=== PATIENT | female | born 1995 | race Caucasian/White ===

== ENCOUNTER 2020-12-23 17:02 | Outpatient (CLI) | payer BC, SELFPAY ==
--- NOTE | ~2020-12-23 | US_ITS ---
US OB limited DATE: 12/23/2020 17:43 INDICATION: False labor. Major cervical length. TECHNIQUE: Real-time imaging and Doppler analysis COMPARISON: None FINDINGS: The cervix measures 4 cm. No funneling is evident. Breech presentation, longitudinal lie. Subjectively normal amount of amniotic fluid. heart rate of 141 bpm. IMPRESSION: 4 cm cervical length, without funneling Breech presentation Reviewed, dictated and finalized at Location [facility]. Reviewed, dictated and finalized at location A.
--- NOTE | ~2020-12-23 | US_ITS ---
US OB transvaginal DATE: 12/23/2020 17:43 INDICATION: False labor TECHNIQUE: Real-time imaging and Doppler analysis COMPARISON: None FINDINGS: Breech presentation, longitudinal lie. heart rate of 141 bpm. Subjectively normal amount of amniotic fluid. Cervical length is 4 cm; no funneling. IMPRESSION: 4 cm cervical length; no funneling Breech presentation Reviewed, dictated and finalized at [facility]. Reviewed, dictated and finalized at location A.
== END 2020-12-23 17:03 | disposition home or self-care (01) ==
LOC: ANHIMG 17:08
PROVIDERS: Visit Provider Obstetrics & Gynecology
DX: O32.1XX0 Maternal care for breech presentation, not applicable or unspecified (principal); Z3A.00 Weeks of gestation of pregnancy not specified
CPT/HCPCS: 76815; 76817

== ENCOUNTER 2021-05-09 16:55 | Inpatient (IN) | payer BC, SELFPAY ==
[2021-05-09] VITALS (12 sets, daily range): BP systolic 120–142; BP diastolic 81–98; PULSE 94–133; RESP 20; TEMP 37; BMI 45.3
--- OUTSIDE RECORDS SUMMARY | 2021-05-09 17:00 | XMS_ITS | Encounter Summary ---
:1995 Author Reason for Visit OB visit 39w5d Assessment and Plan 1. Routine care Discussion Note: None recorded.Patient educational handouts: No information available. Plan of Care Reminders Provider Appointments None ? ? recorded. Lab None ? ? recorded. Referral None ? ? recorded. Procedures None ? ? recorded. Surgeries None ? ? recorded. Imaging None ? ? recorded. Medications Name Start Date ? ? One A Day Women's DHA ? OneTouch Delica Plus Lancet 33 gauge ? OneTouch Verio Reflect Meter ? OneTouch Verio test strips ? Medications Administered None recorded. Vitals Height Weight BMI Blood Pressure 4 ft 11.75 in 226 lbs 44.5 kg/m2 135/86 mm[Hg] Results Lab Results None recorded. Allergies Code Code System Name Reaction Severity Onset Adhesive Rash Mild to Moderate ? Problems Name Status Onset Date Source ? Active 10/26/2020 ? Procedures Date Name Performed by ?
--- OUTSIDE RECORDS SUMMARY | 2021-05-09 17:00 | XMS_ITS | Encounter Summary ---
:1995 Author Reason for Visit OB visit OB [id number] EDC 05/06/2021 LMP 07/30/2020 Assessment and Plan 1. Routine care Discussion [...] BMI Blood Pressure 4 ft 11.75 in 224 lbs 44.1 kg/m2 129/87 mm[Hg] Results Lab Results None recorded. Allergies Code Code System Name Reaction Severity Onset Adhesive Rash Mild to Moderate ? Problems Name Status Onset Date Source ? Active 10/26/2020 ? Procedures Date Name Performed by ?
--- OUTSIDE RECORDS SUMMARY | 2021-05-09 17:00 | XMS_ITS | Encounter Summary ---
:1995 Author Reason for Visit None recorded. Assessment and Plan 1. Maternal obesity complicating , childbirth and the puerperium, antepartum ? US, obstetric, biophysical profile + non-stress test Discussion Note: None recorded.Patient educational handouts: No information available. Plan of Care Reminders Provider Appointments None recorded. ? ? Lab None recorded. ? ? Referral None recorded. ? ? Procedures None recorded. ? ? Surgeries None recorded. ? ? Imaging US, Obstetric, [facility] Biophysical Profile + 05/04/2021 Non-stress Test Medications Name Start Date ? ? One A Day Women's DHA ? OneTouch Delica Plus Lancet 33 gauge ? OneTouch Verio Reflect Meter ? OneTouch Verio test strips ? Medications Administered None recorded. Vitals None recorded. Results Lab Results None recorded. Allergies Code Code System Name Reaction Severity Onset Adhesive Rash Mild to Moderate ? Problems Name Status Onset Date Source ? Active 10/26/2020 ? Procedures
--- OUTSIDE RECORDS SUMMARY | 2021-05-09 17:00 | XMS_ITS | Encounter Summary ---
:1995 Author Reason for Visit NST [id number] EDC 05/06/2021 Assessment and Plan 1. Maternal obesity complicating , childbirth and the puerperium, antepartum ? non-stress test Discussion Note: None recorded.Patient educational handouts: No information available. Plan of Care Reminders Provider Appointments None ? ? recorded. Lab None ? ? recorded. Referral None ? ? recorded. Procedures None ? ? recorded. Surgeries None ? ? recorded. Imaging 05/04/2021 [place] Non-stress Test Medications Name Start Date ? [...]
--- OUTSIDE RECORDS SUMMARY | 2021-05-09 17:00 | XMS_ITS | Encounter Summary ---
:1995 Author Reason for Visit None recorded. Assessment and Plan 1. Maternal obesity complicating , childbirth and the puerperium, antepartum ? US, obstetric, follow-up ? US, obstetric, biophysical profile + non-stress test Discussion Note: None recorded.Patient educational handouts: No information available. Plan of Care Reminders Provider Appointments None recorded. ? ? Lab None recorded. ? ? Referral None recorded. ? ? Procedures None recorded. ? ? Surgeries None recorded. ? ? Imaging US, Obstetric, [facility] Follow-up 04/27/2021 ? [facility], [facility] + 04/27/2021 Non-stress Test Medications Name Start Date ? [...]
--- OUTSIDE RECORDS SUMMARY | 2021-05-09 17:00 | XMS_ITS | Encounter Summary ---
:1995 Author Reason for Visit OB visit 37w5d Assessment and Plan 1. Routine care Discussion [...] BMI Blood Pressure 4 ft 11.75 in 229 lbs 45.1 kg/m2 133/86 mm[Hg] Results Lab Results None recorded. Allergies Code Code System Name Reaction Severity Onset Adhesive Rash Mild to Moderate ? Problems Name Status Onset Date Source ? Active 10/26/2020 ? Procedures Date Name Performed by ?
--- OUTSIDE RECORDS SUMMARY | 2021-05-09 17:00 | XMS_ITS | Encounter Summary ---
[...] recorded. Surgeries None ? ? recorded. Imaging 04/27/2021 [place] Non-stress Test Medications Name Start Date ? [...]
--- OUTSIDE RECORDS SUMMARY | 2021-05-09 17:00 | XMS_ITS ---
:1995 Author Care Team Providers Name Role Phone Nataly Chaney Primary Care Provider Unavailable Allergies Code Code System Name Reaction Severity Status Onset Adhesive Rash Mild to Active ? Moderate Medications Name Status Start Date Stop Date ? ? One A Day Completed ? 10/26/2020 One A Day Women's DHA Active ? N ot available OneTouch Delica Plus Lancet 33 gauge Active ? Not available OneTouch Verio Reflect Meter Active ? Not available OneTouch Verio test strips Active ? Not a vailable Problems Name Status Onset Date Source ? Active 10/26/2020 ? Procedures Date Name Performed by ? 10/26/2020 US, Obstetric, Nuchal Translucency [facility] [place] [address] [place] [address] (Work [address]) 12/21/2020 US, Obstetric, 2Nd or 3Rd Trimester [place] lo [address] [place] [address] (Work Place) 12/23/2020 US, Obstetric, Transabdominal [facility] Transvaginal [address] [place] [address] (Work [address]) 01/21/2021 US, Obstetric, Follow-up [place] [address]
--- OUTSIDE RECORDS SUMMARY | 2021-05-09 17:01 | XMS_ITS | Encounter Summary ---
:1995 Author Reason for Visit OB visit Assessment and Plan Assessment Note Patient is ___weeks . Discu ssed plan. 1. Routine care Discussion Note: None recorded.Patient [...] Height Weight BMI Blood Pressure 4 ft 9.25 in 223 lbs 47.8 kg/m2 119/80 mm[Hg] Results Lab Results None recorded. Allergies Code Code System Name Reaction Severity Onset Adhesive Rash Mild to Moderate ? Problems Name Status Onset Date Source ? Active 10/26/2020 ? Procedures Date Name
--- OUTSIDE RECORDS SUMMARY | 2021-05-09 17:01 | XMS_ITS | Encounter Summary ---
:1995 Author Reason for Visit None recorded. Assessment and Plan 1. condition affecting obs tetrical care of mother ? US, obstetric, biophysical profile + non-stress test Discussion Note: None recorded.Patient educational handouts: No information available. Plan of Care Reminders Provider Appointments None recorded. ? ? Lab None recorded. ? ? Referral None recorded. ? ? Procedures None recorded. ? ? Surgeries None recorded. ? ? Imaging US, Obstetric, [facility] Biophysical Profile + 04/20/2021 Non-stress Test Medications Name Start Date ? [...]
--- OUTSIDE RECORDS SUMMARY | 2021-05-09 17:01 | XMS_ITS | Encounter Summary ---
[...] BMI Blood Pressure 4 ft 11.75 in 232 lbs 45.7 kg/m2 126/81 mm[Hg] Results Lab Results None recorded. Allergies Code Code System Name Reaction Severity Onset Adhesive Rash Mild to Moderate ? Problems Name Status Onset Date Source ? Active 10/26/2020 ? Procedures Date Name
--- OUTSIDE RECORDS SUMMARY | 2021-05-09 17:01 | XMS_ITS | Encounter Summary ---
:1995 Author Reason for Visit NST [id number] EDC 05/06/2021 Assessment and Plan 1. Gestational diabetes mellitus , class A>1< ? non-stress test Discussion Note: None recorded.Patient educational handouts: No information available. Plan of Care Reminders Provider Appointments None ? ? recorded. Lab None ? ? recorded. Referral None ? ? recorded. Procedures None ? ? recorded. Surgeries None ? ? recorded. Imaging 04/13/2021 [place] Non-stress Test Medications Name Start Date ? ? One A Day Women's DHA ? OneTouch Delica Plus Lancet 33 gauge ? OneTouch Verio Reflect Meter ? OneTouch Verio test strips ? Medications Administered None recorded. Vitals Height Weight BMI Blood Pressure 4 ft 11.75 in 229 lbs 45.1 kg/m2 139/81 mm[Hg] Results Lab Results None recorded. Allergies Code Code System Name Reaction Severity Onset Adhesive Rash Mild to Moderate ? Problems Name Status Onset Date Source ? Active 10/26/2020 ? Procedures Date
--- OUTSIDE RECORDS SUMMARY | 2021-05-09 17:01 | XMS_ITS | Encounter Summary ---
[...] None recorded. ? ? Imaging US, Obstetric, [place] [facility] Follow-up 03/30/2021 ? [facility] + 03/30/2021 Non-stress Test Medications Name Start Date ? [...]
--- OUTSIDE RECORDS SUMMARY | 2021-05-09 17:01 | XMS_ITS | Encounter Summary ---
[...] ft 11.75 in 229 lbs 45.1 kg/m2 (1) 139/81 mm[H g] (2) 129/93 mm[Hg ] Results Lab Results None recorded. Allergies Code Code System Name Reaction Severity Onset Adhesive Rash Mild to Moderate ? Problems Name Status Onset Date Source ? Active
--- OUTSIDE RECORDS SUMMARY | 2021-05-09 17:01 | XMS_ITS | Encounter Summary ---
[...] recorded. Surgeries None ? ? recorded. Imaging 04/20/2021 [place] Non-stress Test Medications Name Start Date ? [...]
--- OUTSIDE RECORDS SUMMARY | 2021-05-09 17:01 | XMS_ITS | Encounter Summary ---
[...] recorded. Surgeries None ? ? recorded. Imaging 04/06/2021 [place] Non-stress Test Medications Name Start Date ? [...]
--- OUTSIDE RECORDS SUMMARY | 2021-05-09 17:01 | XMS_ITS | Encounter Summary ---
:1995 Author Reason for Visit None recorded. Assessment and Plan 1. screening ? US, obstetric, follow-up Discussion Note: None recorded.Patient educational handouts: No information available. Plan of Care Reminders Provider Appointments None ? ? recorded. Lab None ? ? recorded. Referral None ? ? recorded. Procedures None ? ? recorded. Surgeries None ? ? recorded. Imaging US, 02/15/2021 [place] Obstetric, Follow-up Medications Name Start Date ? ? One [...] ? Procedures Date Name Performed by ? 01/21/2021 US, Obstetric, Follow-up Juan
--- OUTSIDE RECORDS SUMMARY | 2021-05-09 17:01 | XMS_ITS | Encounter Summary ---
:1995 Author Reason for Visit OB visit 34w5d Assessment and Plan 1. Routine care Discussion [...] BMI Blood Pressure 4 ft 11.75 in 227 lbs 44.7 kg/m2 137/87 mm[Hg] Results Lab Results None recorded. Allergies Code Code System Name Reaction Severity Onset Adhesive Rash Mild to Moderate ? Problems Name Status Onset Date Source ? Active 10/26/2020 ? Procedures Date Name Performed by ?
--- OUTSIDE RECORDS SUMMARY | 2021-05-09 17:01 | XMS_ITS | Encounter Summary ---
:1995 Author Reason for Visit OB visit 35w5d / GBS TODAY Assessment and Plan 1. Routine care Discussion [...] BMI Blood Pressure 4 ft 11.75 in 228 lbs 44.9 kg/m2 137/84 mm[Hg] Results Lab Results None recorded. Allergies Code Code System Name Reaction Severity Onset Adhesive Rash Mild to Moderate ? Problems Name Status Onset Date Source ? Active 10/26/2020 ? Procedures Date Name Performed by ?
--- OUTSIDE RECORDS SUMMARY | 2021-05-09 17:01 | XMS_ITS | Encounter Summary ---
[...] BMI Blood Pressure 4 ft 9.25 in 226 lbs 48.5 kg/m2 119/83 mm[Hg] Results Lab Results None recorded. Allergies Code Code System Name Reaction Severity Onset Adhesive Rash Mild to Moderate ? Problems Name Status Onset Date Source ? Active 10/26/2020 ? Procedures Date Name
--- OUTSIDE RECORDS SUMMARY | 2021-05-09 17:01 | XMS_ITS | Encounter Summary ---
[...] None recorded. ? ? Imaging US, Obstetric, [facility] Biophysical Profile + 04/13/2021 Non-stress Test Medications Name Start Date ? [...]
[2021-05-09 17:36] LABS: Basophils Absolute Auto 0.1 K/mm3 (0.0-0.1); Basophils Percent Auto 0.4 % (0.2-1.2); Eosinophils Absolute Auto 0.1 K/mm3 (0-0.3); Eosinophils Percent Auto 0.7 % (0-4.4); Hematocrit 38.3 % (37.0-47.0); Hemoglobin 12.9 g/dL (12.0-15.0); Immature Granulocyte Absolute 0.06 K/mm3 (0.00-0.031); Immature Granulocyte Percent A 0.5 % (0-0.5); Immature Platelet Fraction Pct 15.5 % (0.9-11.2); Lymphocytes Absolute Auto 2.61 K/mm3 (0.9-3.2); Lymphocytes Percent Auto 21.7 % (18.3-44.2); Mean Corpuscular HGB Conc 33.7 g/dl (32-36); Mean Corpuscular Hemoglobin 27.8 pg (26-34); Mean Corpuscular Volume 82.5 fl (80-100); Mean Platelet Volume 12.6 fl (7.4-10.4); Monocytes Absolute Auto 0.8 K/mm3 (0.1-0.6); Neutrophils Absolute Auto 8.4 K/mm3 (1.3-6.7); Neutrophils Percent Auto 69.7 % (45.5-73.1); Platelet Count Result 229 k/mm3 (150-375); Red Blood Count 4.64 M/mm3 (4.2-5.4); Red Cell Distribution Width 15.6 % (11.5-14.5); White Blood Count 12.1 K/mm3 (4.5-10.0)
[2021-05-09] MEDS: DINOPROSTONE 10 MG VAG INSERT VAGINAL (17:50)
[2021-05-09 19:18] LABS: Alanine Aminotransferase 21 U/L (4-35); Albumin Level 3.4 g/dL (3.5-5.1); Alkaline Phosphatase 239 U/L (38-126); Anion Gap 7 mmol/L (8-16); Aspartate Amino Transferase 23 U/L (14-36); Bilirubin,Total 0.2 mg/dL (0.2-1.3); Blood Urea Nitrogen 7 mg/dL (7-17); Carbon Dioxide 20 mmol/L (22-30); Chloride 105 mmol/L (98-107); Estimated Glomerular Filt Rate > 60; Glucose 104 mg/dL (65-110); Potassium 3.6 mmol/L (3.4-5.0); Sodium 132 mmol/L (137-145); Uric Acid 4.8 mg/dL (2.5-7.5)
[2021-05-10] VITALS (135 sets, daily range): BP systolic 79–142; BP diastolic 30–119; PULSE 73–174; RESP 18; TEMP 36.6–37.3; O2SAT 97–100
--- NOTE | 2021-05-10 04:13 | WPDANESEPP ---
Anes - Eval Pre Procedure Procedure: Labor epidural Date/Time: 05/10/21 04:13 Surgeon: Papo Preop Diagnosis: Abd pain with contractions Pre Op Diagnosis: IOL Patient Data Age: 26 Gender: F Height: 1.5 m Weight: 102 kg Last Vital Signs Temp 98.2 F 05/10/21 00:53 Pulse 174 H 05/10/21 04:05 Resp 18 05/10/21 00:53 BP 140/119 H 05/10/21 04:05 Allergies Allergy/AdvReac Type Severity Reaction Status Date / Time No Known Allergies Allergy Unknown Unverified 01/05/19 14:20 No Known Allergies Allergy Uncoded 01/05/19 14:20 Home Medications Medication Instructions Recorded Confirmed Type PNV cmb#95-ferrous fumarate-FA 1 tablet PO DAILY 04/05/21 05/09/21 History [] Laboratory Tests 05/09/21 05/09/21 05/09/21 17:26 17:26 17:26 WBC 12.1 K/mm3 H K/mm3 (4.5-10.0) RBC 4.64 M/mm3 M/mm3 (4.2-5.4) Hgb 12.9 g/dL g/dL (12.0-15.0) Hct 38.3 % % (37.0-47.0) MCV 82.5 fl fl (80-100) MCH 27.8 pg pg (26-34) MCHC 33.7 g/dl g/dl (32-36) RDW 15.6 % H % (11.5-14.5) Plt Count 229 k/mm3 k/mm3 (150-375) MPV 12.6 fl H fl (7.4-10.4) Immature Gran % (Auto) 0.5 % % (0-0.5) Neut % (Auto) 69.7 % % (45.5-73.1) Lymph % (Auto) 21.7 % % (18.3-44.2) Chase % (Auto) 7.0 % % (2.6-8.5) Eos % (Auto) 0.7 % % (0-4.4) Baso % (Auto) 0.4 % % (0.2-1.2) Lymph # (Auto) 2.61 K/mm3 K/mm3 (0.9-3.2) Chase # (Auto) 0.8 K/mm3 H K/mm3 (0.1-0.6) Eos # (Auto) 0.1 K/mm3 K/mm3 (0-0.3) Baso # (Auto) 0.1 K/mm3 K/mm3 (0.0-0.1) Abs Immat Gran (auto) 0.06 K/mm3 H K/mm3 (0.00-0.031) Absolute Neuts (auto) 8.4 K/mm3 H K/mm3 (1.3-6.7) Absolute Nucleated RBC 0.0 K/mm3 K/mm3 (0.0-0.012) Nucleated RBC % 0.0 % % (0.0-0.2) % Immature Plt Fraction 15.5 % H % (0.9-11.2) Sodium Potassium Chloride Carbon Dioxide Anion Gap BUN Creatinine Estim Creat Clear Calc Estimated GFR Glucose Uric Acid Calcium Total Bilirubin AST ALT Alkaline Phosphatase Total Protein Albumin RPR Pending Blood Type O Positive Antibody Screen Negative 05/09/21 18:59 WBC RBC Hgb Hct MCV MCH MCHC RDW Plt Count MPV Immature Gran % (Auto) Neut % (Auto) Lymph % (Auto) Chase % (Auto) Eos % (Auto) Baso % (Auto) Lymph # (Auto) Chase # (Auto) Eos # (Auto) Baso # (Auto) Abs Immat Gran (auto) Absolute Neuts (auto) Absolute Nucleated RBC Nucleated RBC % % Immature Plt Fraction Sodium 132 mmol/L L mmol/L (137-145) Potassium 3.6 mmol/L mmol/L (3.4-5.0) Chloride 105 mmol/L mmol/L (98-107) Carbon Dioxide 20 mmol/L L mmol/L (22-30) Anion Gap 7 mmol/L L mmol/L (8-16) BUN 7 mg/dL mg/dL (7-17) Creatinine 0.60 mg/dL L mg/dL (0.7-1.0) Estim Creat Clear Calc Not Reportable Estimated GFR > 60 (59 - ) Glucose 104 mg/dL mg/dL (65-110) Uric Acid 4.8 mg/dL mg/dL (2.5-7.5) Calcium 9.0 mg/dL mg/dL (8.4-10.2) Total Bilirubin 0.2 mg/dL mg/dL (0.2-1.3) AST 23 U/L U/L (14-36) ALT 21 U/L U/L (4-35) Alkaline Phosphatase 239 U/L H U/L (38-126) Total Protein 6.0 g/dL L g/dL (6.3-8.2) Albumin 3.4 g/dL L g/dL (3.5-5.1) RPR Blood Type Antibody Screen Patient hx anesthesia problems: none Family hx anesthesia problems: none Results Review: All pre-operative results and documents have been
[2021-05-10] MEDS: fentaNYL CITRATE INJ (*CRX) 100 MCG/2 ML VIAL 50 MCG IV PUSH (04:22)
[2021-05-10 06:08] LABS: Rapid Plasma Reagin Non-Reactive (NonReactive)
[2021-05-10] MEDS: ACETAMINOPHEN 500 MG TABLET 1000 MG PO (06:09)
[2021-05-10] MEDS: LACTATED RINGERS 1,000 ML 125 ML IV CONT ×4 (06:25→13:05)
[2021-05-10] MEDS: fentaNYL CITRATE INJ (*CRX) 100 MCG/2 ML VIAL IV PUSH ×2 (07:14→11:07)
--- NOTE | 2021-05-10 08:37 | WPDOBADMIT ---
Obstetrics - Admit Note Admission Note: 26 y/o G1 here for induction of labor. Pt would like to wait on arom until later today. record reviewed. No pertinent additions to the history and/or any subsequent changes in the physical findings that are not consistent with the expected course of the were found. Additions to the history and/or subsequent changes in the physical findings follow. None.
[2021-05-10] MEDS: OXYTOCIN 30 UNITS/NS 500 ML 30 UNITS/500 ML BAG 6 UNITS IV CONT (08:39)
--- NOTE | 2021-05-10 15:36 | PM.IMHP ---
H&P: HPI History of Present Illness Date/Time: 05/10/21 15:36 Chief Complaint: Induction of labor Review of Systems Review of Systems: All systems reviewed & are unremarkable except as noted in HPI and below Constitutional: Constitutional: Reports as per HPI and Reports no additional constitutional complaints Eyes: Eyes: Reports as per HPI ENT: Reports system reviewed and no additional complaints, except as documented Cardiovascular: Cardiovascular: Reports as per HPI Respiratory: Respiratory: Reports as per HPI Gastrointestinal: Gastrointestinal: Reports as per HPI Genitourinary: Genitourinary: Reports no additional female genitourinary complaints Musculoskeletal: Musculoskeletal: Reports no additional musculoskeletal complaints Integumentary/Breasts: Skin/Breast: Reports system reviewed and no additional complaints, except as docu Neurologic: Reports system reviewed and no additional complaints, except as documented Psychiatric: Psychiatric: Reports no additional psychiatric complaints Endocrine: Endocrine: Reports no additional endocrine complaints Hematologic/Lymphatic: Hematologic/Lymphatic: Reports no additional hematologic/lymphatic complaints Allergic/Immunologic: Allergic/Immunologic: Reports no additional allergic/immunologic complaints [facility] Past Medical History Medical History ADHD Asthma Depression Morbid obesity Family History Family History Mother Hypertension Social History Social History Smoking status: Never smoker Substance use: never Spiritual care concerns: No Meds Home Medications and Allergies Home Medications Medication Instructions Recorded Confirmed Type PNV cmb#95-ferrous fumarate-FA 1 tablet PO DAILY 04/05/21 05/09/21 History [] Allergies Allergy/AdvReac Type Severity Reaction Status Date / Time No Known Allergies Allergy Unknown Unverified 01/05/19 14:20 No Known Allergies Allergy Uncoded 01/05/19 14:20 Vital Signs Vital Signs - 24 hr 05/09/21 17:36 05/09/21 17:37 05/09/21 17:51 Temperature 98.6 F Pulse Rate 112 H 133 H Respiratory Rate 20 Blood Pressure 128/94 H 142/89 H Pulse Oximetry 05/09/21 18:01 05/09/21 18:16 05/09/21 18:31 Temperature Pulse Rate 109 H 119 H 105 H Respiratory Rate Blood Pressure 128/92 H 128/98 H 120/93 H Pulse Oximetry 05/09/21 18:46 05/09/21 19:01 05/09/21 19:16 Temperature Pulse Rate 98 104 H 98 Respiratory Rate Blood Pressure 127/86 133/82 129/91 H Pulse Oximetry 05/09/21 19:31 05/09/21 19:46 05/09/21 23:56 Temperature Pulse Rate 94 95 108 H Respiratory Rate Blood Pressure 133/83 131/81 132/86 Pulse Oximetry 05/10/21 00:01 05/10/21 00:16 05/10/21 00:31 Temperature Pulse Rate 97 101 H 92 Respiratory Rate Blood Pressure 132/84 125/84 128/82 Pulse Oximetry 05/10/21 00:46 05/10/21 00:53 05/10/21 01:02 Temperature 98.2 F Pulse Rate 87 87 Respiratory Rate 18 Blood Pressure 117/70 Pulse Oximetry 05/10/21 02:05 05/10/21 03:08 05/10/21 04:05 Temperature Pulse Rate 86 97 174 H Respiratory Rate Blood Pressure 116/80 134/83 140/119 H Pulse Oximetry 05/10/21 04:33 05/10/21 04:38 05/10/21 04:43 Temperature Pulse Rate 95 Respiratory Rate Blood Pressure 138/90 Pulse Oximetry 98 98 97 05/10/21 04:47 05/10/21 04:48 05/10/21 04:53 Temperature Pulse Rate 99 Respiratory Rate Blood Pressure 131/67 Pulse Oximetry 98 97 05/10/21 04:58 05/10/21 05:01 05/10/21 05:03 Temperature Pulse Rate 90 Respiratory Rate Blood Pressure 118/77 Pulse Oximetry 98 98 05/10/21 05:08 05/10/21 05:13 05/10/21 05:17 Temperature Pulse Rate 94 Respiratory Rate Blood Pressure 130/68 Pulse
--- NOTE | 2021-05-10 15:41 | WPDHPUPDATE1 ---
History and Physical Update Update Date/Time: 05/10/21 15:41 FHR deceleration x 5 minutes. No improvement with multiple position changes. Cervix 4cm. Dr Barros called over for possible section. History and Physical has been reviewed, including an updated exam of the patient. There are NO changes in the patient's condition. Risks, benefits, and alternatives have been discussed and questions answered. Patient agrees to proceed with procedure.
--- NOTE | 2021-05-10 15:42 | WPDHPUPDATE1 ---
History and Physical Update Update Date/Time: 05/10/21 15:42 Urgent called for NRFHT. History and Physical has been reviewed, including an updated exam of the patient. There are NO changes in the patient's condition. Risks, benefits, and alternatives have been discussed and questions answered. Patient agrees to proceed with procedure.
--- NOTE | 2021-05-10 16:35 | P.OP_ITS ---
Procedure Note - Detailed Date of Procedure 05/10/21 Pre-op Diagnosis IOL, nonreassuring heart tones Post-op Diagnosis same Procedure Performed Low-transverse section Surgeon Maeve Barros MD Anesthesia spinal Findings Normal gestational maternal anatomy, average size infant, normal Apgars. Description of Procedure The patient was taken the operating room. She was prepped and draped in dorsal supine position with a leftward tilt. This was done after spinal anesthetic was applied. A low-transverse skin incision was made and carried down till of the fascia with the knife. The fascial incision was made with the knife. The fascial incision was extended laterally with Nair scissors. The fascia was tented upward superiorly and inferiorly the rectus muscles were dissected off bluntly. The rectus muscles were the midline. The preperitoneal fat and peritoneum were dissected open bluntly at the superior aspect of the rectus muscles. The peritoneal incision was extended superior and inferior with good position of bladder. The uterine incision was made with a scalpel down to the level of the amniotic cavity. The amniotic cavity was entered bluntly. The was delivered. The cord was clamped and cut and th e was handed off to waiting pediatric staff. Cord bloods were obtained. The placenta was removed manually. The uterus was exteriorized. The uterus was cleared of all clots, debris and membranes. The uterus was closed in 0 Vicryl running lock fashion. The uterine incision extended to the left lateral side towards the uterine artery and ureter. Multiple muuwko-li-hepuk sutures were placed in this area to control the bleeding. This was between the bladder and the left adnexa. When the bleeding was stopped with multiple sutures the position of the ureter was checked. The space lateral to the fallopian tube and adjacent to the round ligament was opened and the ureter was examined visually and palpated. An imbricating over a was placed along the incision line as well. The uterus was returned to the abdomen. The gutters were cleared of all clots and debris. The fascia was closed with 0 Vicryl running fashion. The subcutaneous tissue was irrigated pinpoint bleeders were cauterized. The skin was closed with subcuticular absorbable tarah. The skin incision line was covered with glue. The patient tolerated the procedure well. She has taken recovery room in stable condition. Sponge lap and needle counts were correct x2. Estimated Blood Loss 560 Pathology yes Complications No immediate complications Condition stable Disposition PACU
[2021-05-10] MEDS: OXYTOCIN 30 UNITS/NS 500 ML 30 UNITS/500 ML BAG 125 UNITS IV CONT (17:30)
[2021-05-10] MEDS: KETOROLAC 30 MG/ML VIAL (*BKC) IV PUSH (18:26)
--- NOTE | 2021-05-10 19:27 | PC.NURSE ---
Patient transferred to post room #286 via stretcher. Support person, Nikolai, present. Oriented to unit, room, information board, rooming in, admission packet and security measures. Patient verbalizes understanding.
[2021-05-10] MEDS: DOCUSATE SODIUM 100 MG CAPSULE PO (21:01)
[2021-05-10] MEDS: HYDROcodone/acetaminophen (*CRX) 10-325 MG TABLET 1 TAB PO (21:01)
[2021-05-10] MEDS: DEXTROSE 5%/0.45% SOD CHL 1,000 ML 125 ML IV CONT (23:58)
[2021-05-11 01:30] VITALS: BP 120/78; PULSE 96; RESP 16; TEMP 36.8; O2SAT 96
[2021-05-11] MEDS: HYDROcodone/acetaminophen (*CRX) 10-325 MG TABLET 1 TAB PO ×5 (01:58→18:53)
[2021-05-11 04:05] VITALS: BP 105/58; PULSE 94; RESP 18; TEMP 37.1; O2SAT 99
[2021-05-11 05:36] LABS: Basophils Absolute Auto 0.1 K/mm3 (0.0-0.1); Basophils Percent Auto 0.4 % (0.2-1.2); Eosinophils Percent Auto 0.3 % (0-4.4); Hematocrit 30.2 % (37.0-47.0); Hemoglobin 9.8 g/dL (12.0-15.0); Immature Granulocyte Absolute 0.06 K/mm3 (0.00-0.031); Immature Granulocyte Percent A 0.4 % (0-0.5); Immature Platelet Fraction Pct 16.2 % (0.9-11.2); Lymphocytes Absolute Auto 2.25 K/mm3 (0.9-3.2); Lymphocytes Percent Auto 14.3 % (18.3-44.2); Mean Corpuscular HGB Conc 32.5 g/dl (32-36); Mean Corpuscular Hemoglobin 27.1 pg (26-34); Mean Corpuscular Volume 83.7 fl (80-100); Mean Platelet Volume 13.7 fl (7.4-10.4); Monocytes Percent Auto 6.6 % (2.6-8.5); Neutrophils Absolute Auto 12.3 K/mm3 (1.3-6.7); Platelet Count Result 165 k/mm3 (150-375); Red Blood Count 3.61 M/mm3 (4.2-5.4); Red Cell Distribution Width 15.9 % (11.5-14.5); White Blood Count 15.7 K/mm3 (4.5-10.0)
[2021-05-11] MEDS: IBUPROFEN 600 MG TABLET PO ×2 (07:24→16:08)
[2021-05-11] MEDS: DOCUSATE SODIUM 100 MG CAPSULE PO ×2 (07:25→16:09)
[2021-05-11] MEDS: POLYSACCHARIDE IRON COMPLEX 150 MG CAPSULE PO ×2 (07:25→16:08)
[2021-05-11] MEDS: MULTIVIT/MIN/PREN/FOL AC/IRON TABLET 1 TAB PO (07:26)
--- NOTE | 2021-05-11 07:48 | PM.OBPNVD ---
OB - PN: Subj Subjective Date/time seen: 05/11/21 07:48 Patient comments: no complaints baby status: doing well OB - PN: Obj Data Labs CBC & Chem 7: 05/11/21 04:20 05/09/21 18:59 Labs: Laboratory Results - last 24 hr 05/11/21 04:20 WBC 15.7 H RBC 3.61 L Hgb 9.8 L D Hct 30.2 L MCV 83.7 MCH 27.1 MCHC 32.5 RDW 15.9 H Plt Count 165 MPV 13.7 H Immature Gran % (Auto) 0.4 Neut % (Auto) 78.0 H Lymph % (Auto) 14.3 L [place] % (Auto) 6.6 Eos % (Auto) 0.3 Baso % (Auto) 0.4 Lymph # (Auto) 2.25 [place] # (Auto) 1.0 H Eos # (Auto) 0.0 Baso # (Auto) 0.1 Abs Immat Gran (auto) 0.06 H Absolute Neuts (auto) 12.3 H Absolute Nucleated RBC 0.0 Nucleated RBC % 0.0 % Immature Plt Fraction 16.2 H OB - PN A/P Plan day: 1 Plan: routine care Time Spent With Patient Time: Total time spent is greater than 50% in coordination of care (as documented) at patient's floor/unit and/or counseling patient: Time with patient: less than 15 minutes Review of Systems Review of Systems: All systems reviewed & are unremarkable except as noted in HPI and below Exam Narrative: Fundus firm and vaginal flow controlled. No lower ext redness, warmth, or edema. Negative homans. Denies h/a, v/d or e/p. Reflexes normal. Const: General: comfortable Chest: Breast/axilla inspection: normal inspection of the breasts Resp: Effort & Inspection: normal respiratory effort Cardio: Rate: regular rate GI: GI Palp: Yes Soft to palpation Psych: Appearance: grossly normal Affect: normal affect Attitude: cooperative Thought content: Yes Normal thought content present Judgement: Good judgement present (Psych)
--- NOTE | 2021-05-11 07:58 | PM.OBPNVD ---
OB - PN: Subj Subjective Date/time seen: 05/11/21 07:58 Patient comments: no complaints, pain well controlled, tolerating diet and flatus present OB - PN: Obj Data Labs CBC & Chem 7: 05/11/21 04:20 05/09/21 18:59 Labs: Laboratory Results - last 24 hr 05/11/21 04:20 WBC 15.7 H RBC 3.61 L Hgb 9.8 L D Hct 30.2 L MCV 83.7 MCH 27.1 MCHC 32.5 RDW 15.9 H Plt Count 165 MPV 13.7 H Immature Gran % (Auto) 0.4 Neut % (Auto) 78.0 H Lymph % (Auto) 14.3 L [place] % (Auto) 6.6 Eos % (Auto) 0.3 Baso % (Auto) 0.4 Lymph # (Auto) 2.25 [place] # (Auto) 1.0 H Eos # (Auto) 0.0 Baso # (Auto) 0.1 Abs Immat Gran (auto) 0.06 H Absolute Neuts (auto) 12.3 H Absolute Nucleated RBC 0.0 Nucleated RBC % 0.0 % Immature Plt Fraction 16.2 H OB - PN A/P Plan day: 1 Comments: Post Op LTCS - no problems, routine recovery Time Spent With Patient Time: Total time spent is greater than 50% in coordination of care (as documented) at patient's floor/unit and/or counseling patient: Exam Const: General: cooperative, healthy appearing, comfortable and no acute distress Resp: Auscultation: no crackles, no rales, no rhonchi and no wheezes Cardio: Rhythm: regular rhythm Heart sounds: no click and no murmurs GI: Inspection: non-distended Auscultation: normal bowel sounds Extrem: General: normal to inspection, no pedal edema and no calf tenderness
[2021-05-11 08:30] VITALS: BP 130/92; PULSE 103; RESP 16; TEMP 37.4; O2SAT 98
[2021-05-11 11:40] VITALS: BP 125/83; PULSE 103; RESP 18; TEMP 36.3; O2SAT 97
--- NOTE | 2021-05-11 12:57 | WPDANLDPN2 ---
Anes-Prog Note L&D Date/Time: 05/11/21 12:57 Comfortable throughout: section Neuraxial method: epidural Epidural/Spinal procedure site: clean & non-tender Neuro status: Neuro function grossly intact. Cardiovascular status: normal Respiratory status: normal Airway patency: baseline Mental status: baseline Post-Op hydration status: normal Vital Signs: Last Vital Signs Temp 36.3 C L 05/11/21 11:40 Pulse 103 H 05/11/21 11:40 Resp 18 05/11/21 11:40 BP 125/83 05/11/21 11:40 Pulse Ox 97 05/11/21 11:40 Pain score (VAS): 04/19 I/O: Intake & Output 05/10/21 05/11/21 05/11/21 23:59 07:59 15:59 Intake Total 600 Output Total 810 450 Balance -810 150 Post-procedural complaints: none Patient feedback: Patient satisfied with anesthetic care.
--- NOTE | 2021-05-11 12:57 | WPDANLDNPN2 ---
Anes-Prog Note L&D-Neuraxial Date/Time: 05/11/21 12:57 Neuraxial medications: intrathecal PF morphine Opiod-related complaints: none Patient feedback: Patient satisfied with post-operative pain management.
--- NOTE | 2021-05-11 14:40 | PC.NURSE ---
[id number] Introductions were made and mother led the discussion of her desires and plans to breastfeed her baby. Reviewed handwashing to prevent infection before and after taking care of her baby. Mother to the restroom, pericare and handwashing completed. Mother verbalizes she is unable to independently latch . Mother has grade 2 flat nipples, edema and states she is very tired recovering from a C/S. Discussed how to watch for early feeding cues, place skin to skin, then feeding baby when infant is ready or every 2-3 hours. Reviewed positioning/alignment with the use of the visual handouts in mom and baby guide and with breast tool. Encouraged mother with infant skin to skin. Assisted mom with to the right breast in football position using nipple to nose encouraging asymmetrical 140-degree latch. Reviewed there is to be no pain with , how to detach infant from the breast, visuals to watch for to confirm effective . Reviewed effective latching with resources tool/handout. Infant was unable to latch. Mom demonstrated teach-back of hand expression. Mother wants to rest, eat and is tearful. Dad is actively involved. Mother has verbalized understanding watching for feeding cues for responsive feeding or how to stimulate infant to initiate from the start of the last feeding. Mother voiced understanding to feed infant when she sees feeding cues, 8-12 times in 24 hours approximately every 2-3 hours from the start of the last feeding or she has discomfort with nursing. Reported to primary RN. [phone] Mom called RN to the room and reviewed hand expression, colostrum to mouth, nipple shield risk and benefits of the tool and when to initiate pumping for milk production. 1312 - Primary RN reported mom fed baby Enfamil.
[2021-05-11 19:45] VITALS: BP 124/85; PULSE 106; RESP 18; TEMP 36.3; O2SAT 98
[2021-05-12] MEDS: IBUPROFEN 600 MG TABLET PO ×4 (00:27→23:23)
[2021-05-12] MEDS: HYDROcodone/acetaminophen (*CRX) 10-325 MG TABLET 1 TAB PO (00:27)
--- NOTE | 2021-05-12 08:00 | PM.OBPNVD ---
OB - PN: Subj Subjective Date/time seen: 05/12/21 08:00 Patient comments: no complaints baby status: doing well OB - PN: Obj Data Labs CBC & Chem 7: 05/11/21 04:20 05/09/21 18:59 OB - PN A/P Plan day: 2 Plan: routine care and discharge home Time Spent With Patient Time: Total time spent is greater than 50% in coordination of care (as documented) at patient's floor/unit and/or counseling patient: Review of Systems Review of Systems: All systems reviewed & are unremarkable except as noted in HPI and below Exam Narrative: Incision CDI Const: General: cooperative, healthy appearing and awake
--- NOTE | 2021-05-12 08:04 | PM.OBDSVD ---
DS: Admitting Diagnosis Discharge Date 05/12/21 Admitting Diagnosis section OB - DS: Summary OB Procedures : None OB Procedures Intrapartum: Spontaneous Vag Delivery OB Procedures: : None Peripartum Data Procedures: Procedures Operation Date: 05/10/21 16:00 Actual Procedure Side Surgeon p Section Maeve Barros MD Time Spent with Patient Time attestation: Total time spent providing and/or coordinating discharge services: DS: Data Data Completed and Pending Pending studies at discharge: Pending at discharge 05/10/21 17:03 Surgical [PTH] Routine Discharge Plan Discharge Attending physician on discharge: Maeve Barros Discharging Clinician: Tanja Murdock Patient Disposition: Home, Self-Care Activity: pelvic rest Diet: regular Patient Instructions: Antibiotic Form Stand Alone Forms: General Discharge Information Follow-up/Referrals: Maeve Barros MD [Physician] - 1 Week Discharge Medications: New hydrocodone-acetaminophen 5-325 mg Tablet 1 tablet PO Q3H PRN (Reason: Moderate Pain (4-6)) Qty: 30 RF: 0 Continued PNV cmb#95-ferrous fumarate-FA [] 28 mg iron- 800 mcg Tablet 1 tablet PO DAILY RF: 0 Date of admission: 05/09/21 16:55 Primary Care Provider: PHYSICIAN,ENERGY AND CONSERVATION TECHNICIAN Admitting Provider: Maeve Barros Attending physician on admission: Maeve Barros Condition: Stable
[2021-05-12 08:25] VITALS: BP 132/73; PULSE 96; RESP 16; TEMP 36.5; O2SAT 100
[2021-05-12] MEDS: MULTIVIT/MIN/PREN/FOL AC/IRON TABLET 1 TAB PO (08:37)
[2021-05-12] MEDS: DOCUSATE SODIUM 100 MG CAPSULE PO ×2 (08:37→15:47)
[2021-05-12] MEDS: POLYSACCHARIDE IRON COMPLEX 150 MG CAPSULE PO ×2 (08:37→15:47)
[2021-05-12] MEDS: HYDROcodone/acetaminophen (*CRX) 5-325 MG TABLET 1 TAB PO ×3 (08:38→23:25)
[2021-05-12] MEDS: SIMETHICONE 80 MG TAB.CHEW PO ×2 (08:44→15:47)
--- NOTE | 2021-05-12 10:16 | PCCCNOTE ---
Care Coordination. Patient referred to CC for history of cutting. Spoke with pt. and FOB at bedside. Pt. reports history of cutting from a long time ago. She reports used to be on antidepressants, but has a plan to check in with her PMD in a few weeks to see how she's doing. If she's still feeling well, will likely not get started on antidepressants. Spoke with pt. about post and keeping communication open with FOB, family, and doctor, so she would be able to get help if needed. Pt. reports good family support. She plans to go home with FOB. They have all necessary baby care items. She is over-resourced for WIC services and denies any other community or counseling resource information needed. No further CC needs.
[2021-05-12 19:40] VITALS: BP 132/89; PULSE 107; RESP 16; TEMP 36.8; O2SAT 100
[2021-05-13] MEDS: POLYSACCHARIDE IRON COMPLEX 150 MG CAPSULE PO (07:12)
[2021-05-13] MEDS: MULTIVIT/MIN/PREN/FOL AC/IRON TABLET 1 TAB PO (07:12)
[2021-05-13] MEDS: HYDROcodone/acetaminophen (*CRX) 5-325 MG TABLET 1 TAB PO ×3 (07:12→14:09)
[2021-05-13] MEDS: DOCUSATE SODIUM 100 MG CAPSULE PO (07:12)
[2021-05-13] MEDS: IBUPROFEN 600 MG TABLET PO ×2 (07:13→14:10)
[2021-05-13 08:30] VITALS: BP 136/86; PULSE 84; RESP 18; TEMP 36.2; O2SAT 100
--- NOTE | 2021-05-13 08:48 | PM.OBPNVD ---
OB - PN: Subj Subjective Date/time seen: 05/13/21 08:48 Patient comments: no complaints, pain well controlled, tolerating diet and flatus present [place] baby status: doing well OB - PN: Obj Data Labs CBC & Chem 7: 05/11/21 04:20 05/09/21 18:59 OB - PN A/P Plan day: 3 Plan: routine care and discharge home (Follow up in 1 week) Time Spent With Patient Time: Total time spent is greater than 50% in coordination of care (as documented) at patient's floor/unit and/or counseling patient: Time with patient: less than 15 minutes Review of Systems Review of Systems: All systems reviewed & are unremarkable except as noted in HPI and below Exam Narrative: Fundus firm. Vaginal flow controlled. Incision dry and intact. Negative homans. No redness, warmth, or pain of lower ext. Const: General: comfortable Chest: Breast/axilla inspection: normal inspection of the breasts Resp: Effort & Inspection: normal respiratory effort Auscultation: clear to auscultation bilaterally Cardio: Rate: regular rate GI: GI Palp: Yes Soft to palpation Psych: Appearance: grossly normal Affect: normal affect Attitude: cooperative Thought content: Yes Normal thought content present Judgement: Good judgement present (Psych)
[2021-05-13] MEDS: TETANUS,DIPHTHERIA,AC PERTUSSIS ADULT (0.5 ML) BOOSTRIX IM (10:03)
--- NOTE | 2021-05-13 14:38 | PC.NURSE ---
1000 - Explored the plan in place for mom feeding at home. She has chosen to pump/feed/supplement. She is smiling and confident this morning with her plan. Reviewed pumping frequencies for milk production and storage using the mom and baby guide for additional resource. Reinforced watching for feeding cues with responsive feeding, how to stimulate feeding initiated three hours from the start of the last feeding. Mother voiced understanding of information shared. Reported to the primary RN.
[2021-05-15 10:57] VITALS: BP 131/78; PULSE 86; RESP 20; TEMP 37.1; O2SAT 100
--- NOTE | 2021-05-16 15:52 | PM.OBDSVD ---
DS: Admitting Diagnosis Discharge Date 05/13/21 Admitting Diagnosis IOL OB - DS: Summary OB Procedures : None OB Procedures Intrapartum: OB Procedures: : None Peripartum Data Procedures: Procedures Operation Date: 05/10/21 16:00 Actual Procedure Side Surgeon p Section Maeve Barros MD Time Spent with Patient Time attestation: Total time spent providing and/or coordinating discharge services: DS: Data Data Completed and Pending Completed studies during hospitalization: Pending at discharge 05/10/21 17:03 Surgical [PTH] Routine Discharge Plan Discharge Attending physician on discharge: Maeve Barros Consulting providers: Nataly Chaney ; Tanja Murdock Discharging Clinician: Nataly Chaney Patient Disposition: Home, Self-Care Activity: may drive after 2 weeks and pelvic rest Diet: regular Discharge Instructions: Education: Mom and Baby Guide Given to: Mother Follow-Up: Call your delivering provider's office for an appointment to be seen in: 1 Week Mom and baby should come to the [facility] for the follow-up appointment. Appointment Date/Time: May 15, 2021 at 11:00 am What to expect at your follow-up visit: Physical Assessment Call [phone] if you are unable to keep your appointment time. BREAST CARE: * Wear a snug supportive bra. * For engorgement discomfort: Breast Feeding: * Apply warm moist washcloths * Express milk as needed to relieve engorgement * Wear loose clothing * For sore nipples: * Identify correct latch-on * Apply warm moist washcloths before and after nursing * Air dry nipples after nursing * May apply Lansinoh cream to nipples ABDOMINAL INCISION: * Allow incision to air dry * Do NOT use lotions for powders on your incision * When showering, allow soap and water to run over the incision, but do not wash incision PERINEAL CARE: * Until bleeding stops, use your aleyda bottle after urinating * Change your pad frequently throughout the day * No tub baths until seen by your physician - You may shower ACTIVITY: * Rest as much as possible. * Do not exercise or lift anything heavier than your baby (such as laundry or other children.) * Avoid stairs or driving as much as possible. * Do not put anything into the vagina. No douching, tampons, or sexual activity until seen by physician. NOTIFY PHYSICIAN IF YOU HAVE ANY QUESTIONS OR IF ANY OF THE FOLLOWING SYMPTOMS OCCUR: * If your incision becomes red, swollen, or more painful than what you have experienced in the hospital. * If your vaginal bleeding becomes foul smelling. * If your vaginal bleeding becomes more heavy than a period or if your bleeding changes from pink to bright red. However, you may pass an occasional walnut-sized clot once or twice for the first week . * If you experience a sharp, shooting pain in you calves. * If you discover a hard, reddened area on your breast or if you experience flu-like symptoms. DIET: * Eat regular, well-balanced meals. * Drink plenty of fluids daily. If , drink to thirst. Stand Alone Forms: General Discharge Information Follow-up/Referrals: Maeve Barros MD [Physician] - 1 Week Discharge Medications: Continued PNV cmb#95-ferrous fumarate-FA [] 28 mg iron- 800 mcg Tablet 1 tablet PO DAILY RF: 0 Date of admission: 05/09/21 16:55 Primary Care Provider: PHYSICIAN,GUIDANCE AND CONTROL SYSTEM ENGINEER Admitting Provider: Maeve Barros Attending physician on admission: Maeve Barros Condition: Stable
== END 2021-05-13 16:06 | disposition home or self-care (01) | DRG 786 ==
LOC: ANHLDR 05-10 12:14 → ANHOB2 05-10 19:32
PROVIDERS: Advanced Practice Midwife; Admitting Provider Obstetrics & Gynecology; Visit Provider Obstetrics & Gynecology
PROC: 10D00Z1 Extraction of Products of Conception, Low, Open Approach (ICD-10-PCS; CPT 59514; principal; 2021-05-10 16:00)
DX: O76 Abnormality in fetal heart rate and rhythm complicating labor and delivery (principal); O41.1230 Chorioamnionitis, third trimester, not applicable or unspecified; O99.214 Obesity complicating childbirth; E66.01 Morbid (severe) obesity due to excess calories; Z3A.40 40 weeks gestation of pregnancy; Z37.0 Single live birth; O99.52 Diseases of the respiratory system complicating childbirth; J45.909 Unspecified asthma, uncomplicated
CPT/HCPCS: 36415; 80053; 84550; 85025; 85055; 86592; 86850; 86900; 86901; 88307; 90715; A9270; J0131; J1885; J2274; J2370; J2590; J2795; J3010; J7120

== ENCOUNTER 2021-05-14 00:16 | Observation (INO) | payer BC, SELFPAY ==
[2021-05-14 00:47] VITALS: BP 132/66; PULSE 104
[2021-05-14 01:01] VITALS: BP 130/65; PULSE 87
--- NOTE | 2021-05-14 01:13 | OBADM ---
This patient, Celia Hale, admitted to the OB room OB Post 113 for observation. Patient/family oriented to hospital policies and general routines including ID bracelet, bed and alarms, visiting hours, pain management, procedures, bathroom and other care routines, personal items, smoking policy, room service/diet, and visiting hours. Patient/Family are encouraged to report perceived risks to care and to ask questions if they do not understand what they are told or what they should do.
--- NOTE | 2021-05-14 01:14 | PC.NURSE ---
0108- CALLED DR. MOROCHO- INFORMED OF PT ADMISSION FOR ELEVATED BP AT HOME 150/100s, SEEING SPOTS, HAND AND FACE SWELLING, NO LONGO, NO RUQ PAIN. 1+ PITTING EDEMA AND BILAT LOWER EXTREMITIES. PT IS POST-OP DAY 4 FROM . ORDER RECEIVED TO ADMIT TO OBSERVATION, DRAW PIH LABS, AND MONITOR. IF LABS NORMAL, NO NEED TO CALL WITH RESULTS. DR. MOROCHO WILL SEE PT IN AM. WILL CONTINUE TO MONITOR AND CALL IF QUESTIONS/CONCERNS.
[2021-05-14 02:05] LABS: Basophils Absolute Auto 0.1 K/mm3 (0.0-0.1); Basophils Percent Auto 0.5 % (0.2-1.2); Eosinophils Absolute Auto 0.2 K/mm3 (0-0.3); Eosinophils Percent Auto 2.5 % (0-4.4); Hematocrit 30.1 % (37.0-47.0); Hemoglobin 9.9 g/dL (12.0-15.0); Immature Granulocyte Absolute 0.03 K/mm3 (0.00-0.031); Immature Granulocyte Percent A 0.3 % (0-0.5); Lymphocytes Absolute Auto 2.41 K/mm3 (0.9-3.2); Lymphocytes Percent Auto 26.4 % (18.3-44.2); Mean Corpuscular HGB Conc 32.9 g/dl (32-36); Mean Corpuscular Hemoglobin 27.6 pg (26-34); Mean Corpuscular Volume 83.8 fl (80-100); Mean Platelet Volume 11.3 fl (7.4-10.4); Monocytes Absolute Auto 0.6 K/mm3 (0.1-0.6); Monocytes Percent Auto 6.3 % (2.6-8.5); Neutrophils Absolute Auto 5.8 K/mm3 (1.3-6.7); Platelet Count Result 276 k/mm3 (150-375); Red Blood Count 3.59 M/mm3 (4.2-5.4); Red Cell Distribution Width 15.9 % (11.5-14.5); White Blood Count 9.1 K/mm3 (4.5-10.0)
[2021-05-14 02:09] LABS: Add Urine Microscopic? YES; Appearance Urine Clear (Clear); Bilirubin Urine Negative (Negative); Blood Urine Negative (Negative); Color Urine Straw (Yellow); Glucose Urine UA Negative (Negative); Ketones Urine Trace mg/dL (Negative); Leukocyte Esterase Ur Negative LEU/UL (NEGATIVE); Mucus Urine Rare /lpf; Nitrate Urine Negative (Negative); Protein Urine Negative (Negative); RBC Urine 0-2 /hpf (0-2); Specific Grav Ur 1.005 (1.001-1.035); Squamous Epithelial Cell Urine Rare /hpf (Few); Urobilinogen Urine Negative mg/dL (<2.0); WBC Urine 0-3 /hpf (0-3)
[2021-05-14 02:14] LABS: Total Protein Urine Random 13 mg/dL
[2021-05-14 02:18] LABS: Alanine Aminotransferase 58 U/L (4-35); Albumin Level 3.1 g/dL (3.5-5.1); Alkaline Phosphatase 260 U/L (38-126); Anion Gap 4 mmol/L (8-16); Aspartate Amino Transferase 86 U/L (14-36); Bilirubin,Total 0.4 mg/dL (0.2-1.3); Blood Urea Nitrogen 6 mg/dL (7-17); Calcium 8.5 mg/dL (8.4-10.2); Carbon Dioxide 24 mmol/L (22-30); Chloride 110 mmol/L (98-107); Estimated Glomerular Filt Rate > 60; Glucose 90 mg/dL (65-110); Potassium 3.5 mmol/L (3.4-5.0); Sodium 138 mmol/L (137-145); Uric Acid 4.7 mg/dL (2.5-7.5)
[2021-05-14] MEDS: HYDROcodone/acetaminophen (*CRX) 5-325 MG TABLET 1 TAB PO ×2 (02:20→10:18)
--- NOTE | 2021-05-14 03:00 | PC.NURSE ---
LEFT MESSAGE FOR DR. MOROCHO TO CALL RE:LAB RESULTS
--- NOTE | 2021-05-14 03:16 | PC.NURSE ---
LM FOR DR MOROCHO TO CALL REGARDING LAB RESULTS.
[2021-05-14 03:46] VITALS: BP 118/61; PULSE 81
--- NOTE | 2021-05-14 03:54 | PC.NURSE ---
CALLED DR. MOROCHO- REVIEWED LAB RESULTS. NO NEW ORDERS RECIEVED. DR. MOROCHO TO SEE PT IN AM.
--- NOTE | 2021-05-14 08:40 | PM.IMHP ---
H&P: HPI History of Present Illness Date/Time: 05/14/21 08:40 26 y/o at 5 days post c/s here with complaints of swelling in her fingers and felt a little light headed and had some visual disturbances for a few minutes. The symptoms had resolved by the time she arrived. Chief Complaint: edema and visual disturbances Review of Systems Review of Systems: All systems reviewed & are unremarkable except as noted in HPI and below Constitutional: Constitutional: Reports as per HPI and Reports no additional constitutional complaints Eyes: Eyes: Reports as per HPI ENT: Reports system reviewed and no additional complaints, except as documented Cardiovascular: Cardiovascular: Reports as per HPI Respiratory: Respiratory: Reports as per HPI Gastrointestinal: Gastrointestinal: Reports as per HPI Genitourinary: Genitourinary: Reports no additional female genitourinary complaints Musculoskeletal: Musculoskeletal: Reports no additional musculoskeletal complaints Integumentary/Breasts: Skin/Breast: Reports system reviewed and no additional complaints, except as docu Neurologic: Reports system reviewed and no additional complaints, except as documented Psychiatric: Psychiatric: Reports no additional psychiatric complaints Endocrine: Endocrine: Reports no additional endocrine complaints Hematologic/Lymphatic: Hematologic/Lymphatic: Reports no additional hematologic/lymphatic complaints Allergic/Immunologic: Allergic/Immunologic: Reports no additional allergic/immunologic complaints [facility] Past Medical History Medical History ADHD Asthma Depression Morbid obesity Family History Family History Mother Hypertension Social History Social History Smoking status: Never smoker Substance use: never Spiritual care concerns: No Meds Home Medications and Allergies Home Medications Medication Instructions Recorded Confirmed Type PNV cmb#95-ferrous fumarate-FA 1 tablet PO DAILY 04/05/21 05/09/21 History [] hydrocodone-acetaminophen 1 tablet PO Q3H PRN #30 tablet 05/12/21 Rx Allergies Allergy/AdvReac Type Severity Reaction Status Date / Time No Known Allergies Allergy Unknown Unverified 01/05/19 14:20 No Known Allergies Allergy Uncoded 01/05/19 14:20 Vital Signs Vital Signs - 24 hr 05/14/21 00:47 05/14/21 01:01 05/14/21 03:46 Pulse Rate 104 H 87 81 Blood Pressure 132/66 130/65 118/61 Exam Const: General: cooperative and healthy appearing Orientation/consciousness: oriented to person, oriented to place, oriented to time and patient oriented x3 Limitations: no limitations HENMT: Head: normal to inspection Ears: hearing grossly normal bilaterally General nose exam: Normal external nose present Face and sinus: normal facial exam Mouth: Yes Normal oral and palatal mucosa present Teeth and gingiva: dentition normal Throat: posterior oropharynx normal Eyes: General: appearance normal, both eyes and all related structures Neck: Neck: normal visual inspection Thyroid: thyroid normal Chest: Chest palpation & inspection: normal inspection of the chest Resp: Effort & Inspection: normal respiratory effort Auscultation: clear to auscultation bilaterally Cardio: Rate: regular rate Rhythm: regular rhythm GI: Inspection: normal to inspection GI Palp: Yes Soft to palpation (Normal post op tenderness) : General: Yes bimanual renal exam normal bilaterally Skin: General skin exam: normal color and no rashes or lesions noted Neuro: General: oriented to person, oriented to place, oriented to time, patient oriented x3 and deep tendon reflexes 2+ bilaterally Speech: normal speech Motor exam (neuro): Normal motor muscle tone present throughout Extrem: General: normal to inspection Right lower extremity: edema De
[2021-05-14 08:49] VITALS: BP 132/75; PULSE 104
[2021-05-14 09:03] VITALS: BP 116/64; PULSE 71
[2021-05-14 09:10] LABS: Basophils Absolute Auto 0.1 K/mm3 (0.0-0.1); Basophils Percent Auto 0.7 % (0.2-1.2); Eosinophils Absolute Auto 0.2 K/mm3 (0-0.3); Hematocrit 31.7 % (37.0-47.0); Immature Granulocyte Absolute 0.02 K/mm3 (0.00-0.031); Immature Granulocyte Percent A 0.3 % (0-0.5); Lymphocytes Absolute Auto 2.15 K/mm3 (0.9-3.2); Lymphocytes Percent Auto 30.8 % (18.3-44.2); Mean Corpuscular HGB Conc 31.5 g/dl (32-36); Mean Corpuscular Hemoglobin 27.3 pg (26-34); Mean Corpuscular Volume 86.6 fl (80-100); Mean Platelet Volume 10.8 fl (7.4-10.4); Monocytes Absolute Auto 0.5 K/mm3 (0.1-0.6); Monocytes Percent Auto 6.4 % (2.6-8.5); Neutrophils Absolute Auto 4.1 K/mm3 (1.3-6.7); Neutrophils Percent Auto 58.8 % (45.5-73.1); Platelet Count Result 258 k/mm3 (150-375); Red Blood Count 3.66 M/mm3 (4.2-5.4); Red Cell Distribution Width 16.2 % (11.5-14.5)
--- NOTE | 2021-05-14 09:20 | PC.NURSE ---
0845--MARLENE Callejas at bedside to assess pt.VSS. Plan of care discussed.
[2021-05-14 09:22] LABS: Alanine Aminotransferase 49 U/L (4-35); Albumin Level 2.9 g/dL (3.5-5.1); Alkaline Phosphatase 218 U/L (38-126); Anion Gap 1 mmol/L (8-16); Aspartate Amino Transferase 60 U/L (14-36); Bilirubin,Total 0.4 mg/dL (0.2-1.3); Blood Urea Nitrogen 5 mg/dL (7-17); Calcium 8.4 mg/dL (8.4-10.2); Carbon Dioxide 27 mmol/L (22-30); Chloride 109 mmol/L (98-107); Estimated Glomerular Filt Rate > 60; Glucose 81 mg/dL (65-110); Potassium 3.7 mmol/L (3.4-5.0); Sodium 137 mmol/L (137-145); Uric Acid 4.9 mg/dL (2.5-7.5)
--- NOTE | 2021-05-14 10:02 | PC.NURSE ---
0938--Reported labs to [facility]. DC orders given.
--- NOTE | 2021-06-09 21:32 | PM.OBTRLD ---
OB - Triage/Final Diagnosis Visit Information Comments/Additional reasons for admission: I have assessed the risk for this patient, Celia Hale, and determined that she would benefit from observation care. Evaluation Laboratory results: Laboratory Tests 05/14/21 05/14/21 05/14/21 01:38 01:38 01:39 WBC 9.1 RBC 3.59 L Hgb 9.9 L Hct 30.1 L MCV 83.8 MCH 27.6 MCHC 32.9 RDW 15.9 H Plt Count 276 D MPV 11.3 H Immature Gran % (Auto) 0.3 Neut % (Auto) 64.0 Lymph % (Auto) 26.4 [place] % (Auto) 6.3 Eos % (Auto) 2.5 Baso % (Auto) 0.5 Lymph # (Auto) 2.41 [place] # (Auto) 0.6 Eos # (Auto) 0.2 Baso # (Auto) 0.1 Abs Immat Gran (auto) 0.03 Absolute Neuts (auto) 5.8 Absolute Nucleated RBC 0.0 Nucleated RBC % 0.0 Sodium Potassium Chloride Carbon Dioxide Anion Gap BUN Creatinine Estim Creat Clear Calc Estimated GFR Glucose Uric Acid Calcium Total Bilirubin AST ALT Alkaline Phosphatase Total Protein Albumin Urine Color Straw Urine Appearance Clear Urine pH 6.0 Ur Specific [place] 1.005 Urine Protein Negative Urine Glucose (UA) Negative Urine Ketones Trace Ur Blood (Man) Negative Urine Nitrate Negative Urine Bilirubin Negative Urine Urobilinogen Negative Ur Leukocyte Esterase Negative Urine RBC 0-2 Urine WBC 0-3 Ur Squamous Epith Cells Rare Urine Mucus Rare U Random Total Protein 13 Urine Creatinine 44.0 Protein/Creat Ratio 2 0.30 H 05/14/21 05/14/21 05/14/21 01:39 08:47 08:47 WBC 7.0 RBC 3.66 L Hgb 10.0 L Hct 31.7 L MCV 86.6 MCH 27.3 MCHC 31.5 L RDW 16.2 H Plt Count 258 MPV 10.8 H Immature Gran % (Auto) 0.3 Neut % (Auto) 58.8 Lymph % (Auto) 30.8 [place] % (Auto) 6.4 Eos % (Auto) 3.0 Baso % (Auto) 0.7 Lymph # (Auto) 2.15 [place] # (Auto) 0.5 Eos # (Auto) 0.2 Baso # (Auto) 0.1 Abs Immat Gran (auto) 0.02 Absolute Neuts (auto) 4.1 Absolute Nucleated RBC 0.0 Nucleated RBC % 0.0 Sodium 138 137 Potassium 3.5 3.7 Chloride 110 H 109 H Carbon Dioxide 24 27 Anion Gap 4 L 1 L BUN 6 L 5 L Creatinine 0.50 L 0.50 L Estim Creat Clear Calc Not Reportable Not Reportable Estimated GFR > 60 > 60 Glucose 90 81 Uric Acid 4.7 4.9 Calcium 8.5 8.4 Total Bilirubin 0.4 0.4 AST 86 H 60 H ALT 58 H 49 H Alkaline Phosphatase 260 H 218 H Total Protein 6.0 L 6.0 L Albumin 3.1 L 2.9 L Urine Color Urine Appearance Urine pH Ur Specific [place] Urine Protein Urine Glucose (UA) Urine Ketones Ur Blood (Man) Urine Nitrate Urine Bilirubin Urine Urobilinogen Ur Leukocyte Esterase Urine RBC Urine WBC Ur Squamous Epith Cells Urine Mucus U Random Total Protein Urine Creatinine Protein/Creat Ratio 2 Final Diagnosis (1) Bilateral lower extremity edema: Code(s): R60.0 - Localized edema Status: Acute
== END 2021-05-14 11:27 | disposition home or self-care (01) ==
PROVIDERS: Advanced Practice Midwife; Admitting Provider Obstetrics & Gynecology; Visit Provider Obstetrics & Gynecology
DX: O12.05 Gestational edema, complicating the puerperium (principal); J45.909 Unspecified asthma, uncomplicated; E66.01 Morbid (severe) obesity due to excess calories; F90.9 Attention-deficit hyperactivity disorder, unspecified type; F32.A Depression, unspecified
CPT/HCPCS: 36415; 80053; 81001; 82570; 84156; 84550; 85025; A9270; G0378; G0379

== ENCOUNTER 2023-09-16 13:24 | Outpatient (CLI) | payer BC, SELFPAY ==
[2023-09-16 13:49] LABS: Hematocrit 36.7 % (37.0-47.0); Hemoglobin 11.6 g/dL (12.0-15.0); Mean Corpuscular HGB Conc 31.6 g/dl (32-36); Mean Corpuscular Hemoglobin 27.1 pg (26-34); Mean Corpuscular Volume 85.7 fl (80-100); Mean Platelet Volume 11.6 fl (7.4-10.4); Platelet Count Result 228 k/mm3 (150-375); Red Blood Count 4.28 M/mm3 (4.2-5.4); Red Cell Distribution Width 20.6 % (11.5-14.5); White Blood Count 8.2 K/mm3 (4.5-10.0)
[2023-09-18 13:15] LABS: Rapid Plasma Reagin Non-Reactive (NonReactive)
== END 2023-09-16 13:25 | disposition home or self-care (01) ==
LOC: ANHLAB 13:26
PROVIDERS: Visit Provider Obstetrics & Gynecology
DX: Z34.93 Encounter for supervision of normal pregnancy, unspecified, third trimester (principal); Z3A.00 Weeks of gestation of pregnancy not specified
CPT/HCPCS: 36415; 85027; 86592; 86850; 86900; 86901

== ENCOUNTER 2023-09-18 09:57 | Inpatient (IN) | payer BC, SELFPAY ==
[2023-09-18] VITALS (45 sets, daily range): BP systolic 93–123; BP diastolic 53–86; PULSE 52–95; RESP 12–20; TEMP 36.2–36.6; O2SAT 96–100; BMI 26.9
[2023-09-18] MEDS: ACETAMINOPHEN 500 MG TABLET 1000 MG PO (10:43)
[2023-09-18] MEDS: LACTATED RINGERS 1,000 ML 125 ML IV CONT ×2 (10:57→11:39)
--- NOTE | 2023-09-18 11:06 | LDADM ---
This patient, Celia Hale, was admitted to Labor/Delivery/Recovery 119 on 09/18/23 at 09:57. Plans for labor, pain management and were discussed with patient. Patient/family oriented to hospital policies and general routines including ID bracelet, bed and alarms, visiting hours, pain management, procedures, bathroom and other care routines, personal items, smoking policy, room service/diet and guest tray routines, security routines, and visiting hours. Patient/Family are encouraged to report perceived risks to care and to ask questions if they do not understand what they are told or what they should do. See [facility] for further documentation.
--- NOTE | 2023-09-18 11:17 | PM.IMHP ---
H&P: HPI History of Present Illness Date/Time: 09/18/23 11:17 Chief Complaint: Term Narrative: 28-year-old multiparous female at term with prior delivery. We have agreed per EP presents area. The patient understands the details of the procedure. The procedure has been explained in detail. She understands the risks. She understands that injuries may occur that result in hospitalization, more surgery, and severe illness. She understands risk of hemorrhage and infection. She denies any chest pain or shortness of breath. She denies any nausea, vomiting, fever, chills. Review of Systems Review of Systems: All systems reviewed & are unremarkable except as noted in HPI and below Constitutional: Constitutional: Denies chills, Denies fatigue, Denies fever(s) and Denies weakness Eyes: Eyes: Denies blurry vision, Denies change in vision, Denies loss of peripheral vision, Denies loss of vision, Denies other visual disturbances and Denies eye pain ENT: Denies vertigo, Denies dizziness, Denies hearing loss, Denies mouth pain, Denies nasal obstruction, Denies neck mass and Denies neck pain Cardiovascular: Cardiovascular: Denies chest pain, Denies diaphoresis, Denies syncope, Denies leg edema and Denies dyspnea Respiratory: Respiratory: Denies chest congestion, Denies cough, Denies hemoptysis, Denies dyspnea and Denies wheezing Gastrointestinal: Gastrointestinal: Denies abdominal pain, Denies constipation, Denies diarrhea, Denies nausea and Denies vomiting Genitourinary: Genitourinary: Denies hematuria, Denies change in libido, Denies nocturia, Denies genital lesions, Denies flank pain and Denies urinary urgency Musculoskeletal: Musculoskeletal: Denies abnormal gait, Denies back pain, Denies myalgias, Denies arthralgias, Denies joint swelling, Denies muscle weakness and Denies neck pain Integumentary/Breasts: Skin/Breast: Denies swelling, Denies breast pain, Denies breast mass, Denies dry skin, Denies nipple discharge, Denies unusual bruising and Denies jaundice Neurologic: Denies Neuro-related abnormal movements, Denies Abnormal speech present, Denies abnormal gait, Denies behavioral changes, Denies confusion, Denies vertigo, Denies dizziness, Denies syncope, Denies loss of vision, Denies memory loss, Denies convulsions and Denies weakness Psychiatric: Psychiatric: Denies abnormal sleep pattern, Denies behavioral changes, Denies change in libido, Denies confusion, Denies depression, Denies anhedonia and Denies memory loss Endocrine: Endocrine: Reports no additional endocrine complaints, Denies change in libido and Denies fatigue Hematologic/Lymphatic: Hematologic/Lymphatic: Reports no additional hematologic/lymphatic complaints Allergic/Immunologic: Allergic/Immunologic: Reports no additional allergic/immunologic complaints and Denies wheezing PMFSH Past Medical History Medical History ADHD Asthma Depression Morbid obesity Family History Family History Mother Hypertension Social History Social History Smoking packs per day: 0.5 Smoking cigarettes per day: 10.0 Years smoked: 5 Smoking pack-years: 2.50 Smoking status: Never smoker Tobacco type: cigarettes Substance use: never Do You Feel Safe in your Home?: Yes Lack of Transportation: No Lack of Food: Never True Current Housing: I Have Housing Concerned About Future Housing: No Difficulty Paying Gas/Electric Bills: No Difficulty Paying for Meds: No Currently Unemployed: No Education: High School Diploma/GED Difficulty w/ Childcare or Family Care: No Spiritual care concerns: No Meds Home Medications and Allergies Home Medications Medication Instructions Recorded Confirmed Type vit no.95-ferrous 1 tablet PO DAILY 04/05/21
--- NOTE | 2023-09-18 11:19 | WPDHPUPDATE1 ---
History and Physical Update Update Date/Time: 09/18/23 11:19 History and Physical has been reviewed, including an updated exam of the patient. There are NO changes in the patient's condition. Risks, benefits, and alternatives have been discussed and questions answered. Patient agrees to proceed with procedure.
[2023-09-18] MEDS: FAMOTIDINE 20 MG/2 ML VIAL IV PUSH (11:40)
[2023-09-18] MEDS: ONDANSETRON INJ 4 MG/2 ML VIAL IV PUSH (11:40)
[2023-09-18] MEDS: ceFAZolin 2 GM/D5W 50 ML 2 GM/50 ML BAG IVPB (12:00)
--- NOTE | 2023-09-18 12:00 | WPDANESEPPF ---
Anes - Initial Pre Proc Eval Procedure: Operation Date: 09/18/23 12:00 Proposed Procedures p Repeat Section - Zohaib Barros MD Date/Time: 09/18/23 12:00 Surgeon: Zohaib Barros MD Pre Op Diagnosis: Repeat C Section Patient Data Age: 28 Gender: F Height: 1.52 m Weight: 62 kg Last Vital Signs Pulse 70 09/18/23 11:32 BP 107/65 09/18/23 11:32 O2 Del Method Room Air 09/18/23 11:04 Allergies Allergy/AdvReac Type Severity Reaction Status Date / Time adhesive tape Allergy Redness of Verified 09/14/23 13:51 Skin iron [From Venofer] Allergy Anaphylaxis Verified 09/14/23 13:51 Home Medications Medication Instructions Recorded Confirmed Type vit no.95-ferrous 1 tablet PO DAILY 04/05/21 09/18/23 History fumarate 28 mg-folic acid 800 mcg tablet () aspirin 81 mg tablet 81 mg PO DAILY 08/03/23 09/18/23 History famotidine 10 mg tablet 10 mg PO BID 08/03/23 09/18/23 History iron 18 mg tablet 45 mg PO BID 08/03/23 08/03/23 History ondansetron 4 mg disintegrating 4 mg PO Q6H PRN Nausea 08/03/23 09/18/23 History tablet sertraline 50 mg tablet 100 mg PO DAILY 08/03/23 09/18/23 History vitamin A 10,000 unit tablet 10,000 unit PO DAILY 08/03/23 09/18/23 History Laboratory Tests 09/18/23 11:02 HIV 1&2 Ab/P24 Ag 4thGn Pending Patient hx anesthesia problems: none Family hx anesthesia problems: none Results Review: All pre-operative results and documents have been reviewed as part of the pre-operative evaluation. PMFSH Past Medical History Medical History ADHD Asthma Depression Morbid obesity Family History Family History Mother Hypertension Social History Social History Smoking packs per day: 0.5 Smoking cigarettes per day: 10.0 Years smoked: 5 Smoking pack-years: 2.50 Smoking status: Never smoker Tobacco type: cigarettes Substance use: never Do You Feel Safe in your Home?: Yes Lack of Transportation: No Lack of Food: Never True Current Housing: I Have Housing Concerned About Future Housing: No Difficulty Paying Gas/Electric Bills: No Difficulty Paying for Meds: No Currently Unemployed: No Education: High School Diploma/GED Difficulty w/ Childcare or Family Care: No Spiritual care concerns: No Anes - Eval Final PreProcedure Day of Procedure 09/18/23 12:00 Patient weight: overweight Heart: regular rate and rhythm Lungs: clear to auscultation Airway: Mallampati scale class II Neurological: alert and oriented Last oral intake: >/= 8 hours ASA classification: II Emergent: no Anesthetic plan: proceed Anesthesia type and monitoring: regional spinal and standard monitoring Results Review: All pre-operative results and documents have been reviewed as part of the pre-operative evaluation. Pt requests sedation after delivery. Discussed spinal as preferred anesthetic w GA as backup. Pt understands and all questions answered to the best of my ability. Informed Consent: The patient's anesthetic plan and its attendant risks and benefits were discussed with the patient/family/POA. Questions were solicited and answers provided to the satisfaction of the patient/family/POA.
[2023-09-18 12:18] LABS: HIV 1/2 Ab P24 Ag Result Negative (Negative)
--- NOTE | 2023-09-18 13:25 | P.PCNOB_ITS ---
OB - Delivery Note Procedure Delivery date: 09/18/23 Pre-op diagnosis: Previous Delivery Post-op Diagnosis: Same Procedure Performed: Repeat Surgeon: Zohaib Barros MD Anesthesia type: Spinal Description of Procedure/Findings: The patient was taken the operating room.? She was prepped and draped in dorsal supine position with a leftward tilt.? This was done after spinal anesthetic was applied.? A low-transverse skin incision was made and carried down till of the fascia with the knife.? The fascial incision was made with the knife.? The fascial incision was extended laterally with Nair scissors.? The fascia was tented upward superiorly and inferiorly the rectus muscles were dissected off bluntly.? The rectus muscles were the midline.? The preperitoneal fat and peritoneum were dissected open bluntly at the superior aspect of the rectus muscles.? The peritoneal incision was extended superior and inferior with good position of bladder.? The uterine incision was made with a scalpel down to the level of the amniotic cavity.? The amniotic cavity was entered bluntly.? The infant was delivered.? The cord was clamped and cut and the infant was handed off to waiting pediatric staff.? Cord bloods were obtained.? The placenta was removed manually.? The uterus was exteriorized.? The uterus was cleared of all clots, debris and membranes.? The uterus was closed in 0 Vicryl running lock fashion.? An imbricating over a was placed along the incision line as well.? The uterus was returned to the abdomen.? The gutters were cleared of all clots and debris.? The fascia was closed with 0 Vicryl running fashion.? The subcutaneous tissue was irrigated pinpoint bleeders were cauterized.? The skin was closed with subcuticular absorbable tarah.? The skin incision line was covered with glue.? The patient tolerated the procedure well.? She has taken recovery room in stable condition.? Sponge lap and needle counts were correct x2.? Estimated Blood Loss: 540 [place] Baby Weeks of gestation at delivery: 39
[2023-09-18] MEDS: OXYTOCIN 30 UNITS/NS 500 ML 30 UNITS/500 ML BAG 125 UNITS IV CONT (13:50)
--- NOTE | 2023-09-18 16:33 | OBPPTRN ---
1600 Patient transferred to post room #1600 via stretcher. Support person present. Oriented to unit, room, information board, rooming in, admission packet and security measures. Patient verbalizes understanding.
[2023-09-18] MEDS: KCL 20 MEQ/D5/0.45% SOD CHL 1,000 ML 125 ML IV CONT (18:45)
[2023-09-18] MEDS: LIDOCAINE 5% PATCH 1 PATCH TRANSDERM (18:45)
[2023-09-18] MEDS: ACETAMINOPHEN 325 MG TABLET 650 MG PO (18:54)
[2023-09-18] MEDS: FAMOTIDINE 10 MG TABLET PO (18:54)
[2023-09-18] MEDS: SIMETHICONE 80 MG TAB.CHEW PO (18:54)
[2023-09-18] MEDS: DOCUSATE SODIUM 100 MG CAPSULE PO (19:10)
[2023-09-18] MEDS: diphenhydrAMINE HCl CAP 25 MG CAPSULE PO (19:38)
[2023-09-19 00:45] VITALS: BP 115/72; PULSE 68; RESP 17; TEMP 36.7; O2SAT 100
[2023-09-19] MEDS: HYDROcodone/acetaminophen (*CRX) 5-325 MG TABLET 1 TAB PO ×5 (01:09→16:14)
[2023-09-19] MEDS: ACETAMINOPHEN 325 MG TABLET 650 MG PO ×4 (01:10→21:41)
[2023-09-19 05:48] LABS: Basophils Absolute Auto 0.1 K/mm3 (0.0-0.1); Basophils Percent Auto 0.5 % (0.2-1.2); Eosinophils Absolute Auto 0.1 K/mm3 (0-0.3); Hematocrit 32.4 % (37.0-47.0); Immature Granulocyte Absolute 0.06 K/mm3 (0.00-0.031); Immature Granulocyte Percent A 0.6 % (0-0.5); Lymphocytes Absolute Auto 2.84 K/mm3 (0.9-3.2); Lymphocytes Percent Auto 27.2 % (18.3-44.2); Mean Corpuscular HGB Conc 30.9 g/dl (32-36); Mean Corpuscular Hemoglobin 27.3 pg (26-34); Mean Corpuscular Volume 88.5 fl (80-100); Mean Platelet Volume 12.2 fl (7.4-10.4); Monocytes Absolute Auto 0.7 K/mm3 (0.1-0.6); Monocytes Percent Auto 7.1 % (2.6-8.5); Neutrophils Absolute Auto 6.7 K/mm3 (1.3-6.7); Neutrophils Percent Auto 63.6 % (45.5-73.1); Platelet Count Result 168 k/mm3 (150-375); Red Blood Count 3.66 M/mm3 (4.2-5.4); Red Cell Distribution Width 20.8 % (11.5-14.5); White Blood Count 10.4 K/mm3 (4.5-10.0)
[2023-09-19] MEDS: DOCUSATE SODIUM 100 MG CAPSULE PO (07:34)
[2023-09-19] MEDS: SERTRALINE HCL 50 MG TABLET 100 MG PO (07:34)
[2023-09-19] MEDS: MULTIVIT/MIN/PREN/FOL AC/IRON TABLET 1 TAB PO (07:34)
[2023-09-19] MEDS: FAMOTIDINE 10 MG TABLET PO (07:34)
[2023-09-19] MEDS: SIMETHICONE 80 MG TAB.CHEW PO ×3 (07:38→21:43)
--- NOTE | 2023-09-19 07:50 | P.PNOB_ITS ---
OB - PN: Subj Subjective Date/time seen: 09/19/23 07:50 Patient comments: no complaints, pain well controlled, tolerating diet and flatus present OB - PN: Obj Data Labs 09/19/23 05:17 Labs: Laboratory Results - last 24 hr 09/18/23 09/19/23 11:02 05:17 WBC 10.4 H RBC 3.66 L Hgb 10.0 L Hct 32.4 L MCV 88.5 MCH 27.3 MCHC 30.9 L RDW 20.8 H Plt Count 168 MPV 12.2 H Immature Gran % (Auto) 0.6 H Neut % (Auto) 63.6 Lymph % (Auto) 27.2 Johnson % (Auto) 7.1 Eos % (Auto) 1.0 Baso % (Auto) 0.5 Lymph # (Auto) 2.84 Johnson # (Auto) 0.7 H Eos # (Auto) 0.1 Baso # (Auto) 0.1 Abs Immat Gran (auto) 0.06 H Absolute Neuts (auto) 6.7 Absolute Nucleated RBC 0.000 Nucleated RBC % 0.0 HIV 1&2 Ab/P24 Ag 4thGn Negative OB - PN A/P Plan day: 1 Comments: Post Op LTCS - no problems, routine recovery Time Spent With Patient Time: Total time spent is greater than 50% in coordination of care (as documented) at patient's floor/unit and/or counseling patient: Exam Const: General: cooperative, healthy appearing, comfortable and no acute dis tress Resp: Auscultation: no crackles, no rales, no rhonchi and no wheezes Cardio: Rhythm: regular rhythm Heart sounds: no click and no murmurs GI: Inspection: non-distended Auscultation: normal bowel sounds Extrem: General: normal to inspection, no pedal edema and no calf tenderness
[2023-09-19 08:10] VITALS: BP 117/70; PULSE 71; RESP 16; TEMP 36.8; O2SAT 100
--- NOTE | 2023-09-19 10:57 | WPDANLDNPN2 ---
Anes-Prog Note L&D-Neuraxial Date/Time: 09/19/23 10:57 Patient feedback: Patient satisfied with post-operative pain management.
--- NOTE | 2023-09-19 10:57 | WPDANLDPN2 ---
Anes-Prog Note L&D Date/Time: 09/19/23 10:57 Neuro status: Neuro function grossly intact. Cardiovascular status: normal Respiratory status: normal Airway patency: baseline Mental status: baseline Post-Op hydration status: normal Vital Signs: Last Vital Signs Temp 36.8 C 09/19/23 08:10 Pulse 71 09/19/23 08:10 Resp 16 09/19/23 08:10 BP 117/70 09/19/23 08:10 Pulse Ox 100 09/19/23 08:10 O2 Del Method Room Air 09/19/23 07:38 Pain score (VAS): 0 I/O: Intake & Output 09/18/23 09/19/23 09/19/23 23:59 07:59 15:59 Intake Total 2500 Output Total 1300 900 Balance 1200 -900 Post-procedural complaints: none Patient feedback: Patient satisfied with anesthetic care.
--- NOTE | 2023-09-19 17:09 | PC.NURSE ---
1615 Left to go on a Pass to visit her baby @ [facility]. PATRICIA drove the car.
[2023-09-19] MEDS: HYDROcodone/acetaminophen (*CRX) 10-325 MG TABLET 1 TAB PO ×2 (19:49→23:13)
[2023-09-19] MEDS: LIDOCAINE 5% PATCH 1 PATCH TRANSDERM (19:51)
[2023-09-19 20:00] VITALS: BP 115/74; PULSE 70; RESP 18; TEMP 37.2; O2SAT 100
[2023-09-20] MEDS: DOCUSATE SODIUM 100 MG CAPSULE PO (06:47)
[2023-09-20] MEDS: HYDROcodone/acetaminophen (*CRX) 10-325 MG TABLET 1 TAB PO ×2 (06:47→09:59)
[2023-09-20] MEDS: SERTRALINE HCL 50 MG TABLET 100 MG PO (06:47)
[2023-09-20] MEDS: SIMETHICONE 80 MG TAB.CHEW PO (06:47)
[2023-09-20] MEDS: FAMOTIDINE 10 MG TABLET PO (06:47)
[2023-09-20 08:20] VITALS: BP 125/86; PULSE 70; RESP 16; TEMP 36.4; O2SAT 100
--- NOTE | 2023-09-20 08:28 | PM.OBPNVD ---
OB - PN: Subj Subjective Date/time seen: 09/20/23 08:28 Patient comments: no complaints, pain well controlled, incisional pain, tolerating diet and flatus present OB - PN: Obj Data Labs 09/19/23 05:17 OB - PN A/P Plan day: 2 Plan: routine care Comments: POD#2 LTCS - no problems, Time Spent With Patient Time: Total time spent is greater than 50% in coordination of care (as documented) at patient's floor/unit and/or counseling patient: Exam Const: General: comfortable, no acute distress and alert Resp: Effort & Inspection: normal respiratory effort Auscultation: no crackles, no rales and no rhonchi Cardio: Rate: regular rate Heart sounds: no click, no murmurs and no rubs GI: Inspection: non-distended Auscultation: normal bowel sounds Other: Incision - CDI Extrem: General: normal to inspection, no pedal edema and no calf tenderness
--- NOTE | 2023-09-20 08:28 | PM.OBDSVD ---
DS: Admitting Diagnosis Discharge Date September 20, 2023 Admitting Diagnosis term , previous C DS: Discharge Diagnosis Discharge Diagnosis (1) Previous delivery, delivered: Code(s): O34.219 - Maternal care for unspecified type scar from previous delivery Status: Acute OB - DS: Summary OB Procedures : None OB Procedures Intrapartum: OB Procedures: : None Peripartum Data Procedures: Procedures Operation Date: 09/18/23 12:00 Actual Procedure Side Surgeon p Repeat Section Zohaib Barros MD Time Spent with Patient Time attestation: Total time spent providing and/or coordinating discharge services: Discharge Plan Discharge Discharging Clinician: Zohaib Barros Patient Disposition: Home, Self-Care Activity: pelvic rest Diet: regular Patient Instructions: Antibiotic Form Stand Alone Forms: General Discharge Information Follow-up/Referrals: Zohaib Barros MD [Physician] - Discharge Medications: New oxycodone-acetaminophen 5-325 mg tablet 1 tablet PO Q4H PRN (Reason: pain) Qty: 25 0RF Continued famotidine 10 mg Tablet 10 mg PO BID ondansetron 4 mg Tablet,Disintegrating 4 mg PO Q6H PRN (Reason: Nausea) sertraline 50 mg Tablet 100 mg PO DAILY vitamin A 10,000 unit Tablet 10,000 unit PO DAILY iron 18 mg Tablet 45 mg PO BID PNV cmb#95-ferrous fumarate-FA [] 28 mg iron- 800 mcg Tablet 1 tablet PO DAILY Discontinued aspirin 81 mg Tablet 81 mg PO DAILY Date of admission: 09/18/23 09:57 Primary Care Provider: UNKNOWN,DOCTOR Admitting Provider: Zohaib Barros Attending physician on admission: Zohaib Barros Condition: Stable
[2023-09-22 08:10] VITALS: BP 129/84; PULSE 71; RESP 18; TEMP 36.9; O2SAT 100
== END 2023-09-20 11:52 | disposition home or self-care (01) | DRG 788 ==
LOC: ANHLDR 10:03 → ANHOB2 16:03
PROVIDERS: Admitting Provider Obstetrics & Gynecology; Visit Provider Obstetrics & Gynecology
PROC: 10D00Z1 Extraction of Products of Conception, Low, Open Approach (ICD-10-PCS; CPT 59514; principal; 2023-09-18 12:00)
DX: O34.211 Maternal care for low transverse scar from previous cesarean delivery (principal); Z37.0 Single live birth; Z3A.39 39 weeks gestation of pregnancy
CPT/HCPCS: 36415; 85025; 86703; A9270; G0432; J0690; J2250; J2274; J2371; J2405; J2590; J3480; J7120

== ENCOUNTER 2024-04-04 12:45 | Emergency (ER) | payer BC, SELFPAY ==
[2024-04-04 13:02] VITALS: BP 126/84; PULSE 90; RESP 16; TEMP 36.8; O2SAT 99
--- NOTE | 2024-04-04 14:12 | ED_ITS ---
HPI - Abdominal Pain General Chief Complaint: Abdominal Pain Stated Complaint: abd pain Time Seen by Provider: 04/04/24 14:12 Focused HPI: This is a 29 year old female that presents to the ER for right upper quadrant pain. Reports history of gallstones. Still has her gallbladder. Reports nausea and vomiting. Reports she is currently on Ciprofloxacin for a UTI. Denies fevers. GENERAL: Well-appearing, well-nourished, and in no acute distress. HEAD: Normocephalic, atraumatic. CHEST: Clear to auscultation. ?No respiratory distress. HEART: Regular rate and rhythm.? NEURO: ?Alert and oriented x3. Patient screened in triage and initial orders placed.? ?Additional care and disposition to be based upon?diagnostic testing and treatment. Related Data Home Medications ?Medication ?Instructions ?Recorded ?Confirmed ?Last Taken ?Type vit no.95-ferrous 1 tablet PO DAILY 04/05/21 09/18/23 09/14/23 08:00 History fumarate 28 mg-folic acid 800 mcg tablet () famotidine 10 mg tablet 10 mg PO BID 08/03/23 09/18/23 09/17/23 17:00 History iron 18 mg tablet 45 mg PO BID 08/03/23 08/03/23 09/17/23 17:00 History ondansetron 4 mg disintegrating 4 mg PO Q6H PRN Nausea 08/03/23 09/18/23 09/14/23 13:00 History tablet sertraline 50 mg tablet 100 mg PO DAILY 08/03/23 09/18/23 09/18/23 07:00 History vitamin A 10,000 unit tablet 10,000 unit PO DAILY 08/03/23 09/18/23 09/14/23 07:00 History Allergies Allergy/AdvReac Type Severity Reaction Status Date / Time adhesive tape Allergy Redness of Verified 09/14/23 13:51 Skin iron (From Venofer) Allergy Anaphylaxis Verified 09/14/23 13:51 PMFSH Past Medical History Medical History ADHD Asthma Depression Morbid obesity Family History Family History Mother Hypertension Social History Social History Smoking packs per day: 0.5 Smoking cigarettes per day: 10.0 Years smoked: 5 Smoking pack-years: 2.50 Smoking status: Never smoker Tobacco type: cigarettes Substance use: never Do You Feel Safe in your Home?: Yes Lack of Transportation: No Lack of Food: Never True Current Housing: I Have Housing Concerned About Future Housing: No Difficulty Paying Gas/Electric Bills: No Difficulty Paying for Meds: No Currently Unemployed: No Education: High School Diploma/GED Difficulty w/ Childcare or Family Care: No Spiritual care concerns: No Course Vital Signs Vital signs: Vital Signs Temperature 98.2 F 04/04/24 13:02 Pulse Rate 90 04/04/24 13:02 Respiratory Rate 16 04/04/24 13:02 Blood Pressure 126/84 04/04/24 13:02 Pulse Oximetry 99 04/04/24 13:02 Temperature 98.2 F 04/04/24 13:02 Pulse Rate 90 04/04/24 13:02 Respiratory Rate 16 04/04/24 13:02 Blood Pressure 126/84 04/04/24 13:02 Pulse Oximetry 99 04/04/24 13:02 MDM - Abdominal Pain MDM Narrative Medical decision making narrative: Patient left after medical screening exam and before any further evaluation or management Critical Care Time Critical Care Time Critical Care Time: No Discharge Plan Discharge Clinical Impression: Right upper quadrant abdominal pain Patient Disposition: Elopement After Seen by Prov Condition: Stable Instructions: Antibiotic Form Patient Language: Italian Prescriptions: No Action famotidine 10 mg Tablet 10 mg PO BID ondansetron 4 mg Tablet,Disintegrating 4 mg PO Q6H PRN (Reason: Nausea) sertraline 50 mg Tablet 100 mg PO DAILY vitamin A 10,000 unit Tablet 10,000 unit PO DAILY iron 18 mg Tablet 45 mg PO BID oxycodone-acetaminophen 5-325 mg tablet 1 tablet PO Q4H PRN (Reason: pain) Qty: 25 0RF PNV cmb#95-ferrous fumarate-FA [] 28 mg iron- 800 mcg Tablet 1 tablet PO DAILY Follow-up/Referrals: UNKNOWN,DOCTOR [Primary Care Provider] -
--- NOTE | 2024-04-04 14:40 | PC.NURSE ---
Pt to the intake desk and states she has to go get her kids and ambulated out of ED
== END 2024-04-04 14:33 | disposition left against medical advice (07) ==
LOC: ANHED 14:52
PROVIDERS: Emergency Provider Physician Assistant
DX: R10.11 Right upper quadrant pain (principal); F90.9 Attention-deficit hyperactivity disorder, unspecified type; J45.909 Unspecified asthma, uncomplicated; F32.A Depression, unspecified
CPT/HCPCS: 99284

== ENCOUNTER 2024-12-30 15:20 | Emergency (ER) | payer BC, SELFPAY ==
--- OUTSIDE RECORDS SUMMARY | 2024-07-12 08:43 | XMS_ITS | Continuity of Care Document ---
Author Organization [facility] Address [address] [place] [address] Phone Care Team Providers Care Interventionist Name Role Phone Aminata MALIK, Joe Unavailable Unavailable Advance Directives Directive Yes / No Effective Date File Name No Information Encounters Encounter Description Practice Location Reason(s) For Visit Diagnoses Date Provider Providers Copied on Encounter [facility], [address], [place], [place], [id number], tel:[phone] 9[address] [facility] No Information Aminata Diaz. [address] [place], [place], [id number]. tel:[phone] Family History Family Member Type Diagnosis Age At Onset No Information Payers Payer name Insurance type Covered libertarian ID Authoriza tion(s) No Information Social History Type Description Quantity Date Captured Comments Sex Female Smoking Status No Information Chief Complaint And Reason For Visit No Information Reason For Referral Reason For Referral No Information History Of Present Illness Encounter Date Complaint History Of Prese nt Illness No Information Functional Status Date Functional Assessmen t No Information Instructions Date Instruction Additional Infor mation No Information Assessments Type Assessment Date No Information Patient Care Teams Name Effective Dates (start - stop) Status Members No Information
--- OUTSIDE RECORDS SUMMARY | 2024-07-12 08:43 | XMS_ITS | Continuity of Care Document ---
Author Organization [facility] Address [address] [place] [address] Phone Care Team Providers Care Teacher Education Instructor Name Role Phone Aminata MALIK, Joe Unavailable Unavailable Advance Directives Directive Yes / No Effective Date File Name No Information Encounters Encounter Description Practice Location Reason(s) For Visit Diagnoses Date Provider Providers Copied on Encounter [facility], [address], [place], [place], [id number], tel:[phone] [address] [facility] No Information Aminata Diaz. [address] [place], [place], [id number]. tel:[phone] Family History Family Member Type Diagnosis Age At Onset No Information Payers Payer name Insurance type Covered alliance party ID Authoriza tion(s) No Information Social History [...]
--- OUTSIDE RECORDS SUMMARY | 2024-12-30 15:27 | XMS_ITS | Patient Health Record ---
Author Organization [facility] Address [address] [facility] [address] [place] [address] Care Team Providers Care Film Reader Name Role Phone Martin Hartman Unavailable [phone] Reason For Referral No Information Plan Of Treatment No Information Insurance Providers Payer Name Payer Address Payer Phone Subscriber Number Group Number Insured Name Patient Relationship to Insured Coverage Start Date Coverage End Date [facility] [address] [place] [address] [phone] [id number] MISBAH GARCIA Self - patient is the insured
--- OUTSIDE RECORDS SUMMARY | 2024-12-30 15:27 | XMS_ITS | Clinical Summary ---
Author Organization [facility] Address [address] [place] [address] Phone Care Team Providers Care Public Works Inspector Name Role Phone Raul Montoya MD Primary Care Provider [phone] Allergies Active Allergy Reactions Criticality Noted Date Comments Adhesive Rash Low 11/12/2021 Medications sertraline (ZOLOFT) 50 mg tablet Take 50 mg by mouth daily. Active HYDROcodone-acet aminophen (HYCET) 7.5-325 mg/15 mL SolutionIndicati ons:Morbid obesity (CMS/HCC) Take 15 mL by mouth every 6 hours as needed for severe pain. Max Daily Amount: 60 mL 300 mL 11/16/2021 12:59 PM CDT 11/15/2021 Active ondansetron (Zofran) 4 mg Tablet Take 1 Tablet (4 mg) by mouth every 6 hours as needed for Nausea or Vomiting. 28 Tablet 11/16/2021 12:59 PM CDT 11/15/2021 Active Active Problems Problem Noted Date Diagnosed Date Gastroesophageal reflux disease without esophagi tis 11/15/2021 Encounter for general adult medical examination without abnormal findings 11/15/2021 Morbid obesity with body mass index of 40.0-49.9 11/15/2021 Immunizations Immunization Administration Dates Next Due (PFIZER AKILA)(12 YR UP PRIMA RY SERIES) COVID-19 VACCINE - EMERGENCY USE AUTHORIZATION, MRNA, AKILA(PF) 30 MCG/0.3 ML IM SUSP 06/27/2021,06/12/2021 Social History Tobacco Use Types Packs/Day Years Used Date Smoking Tobacco: Former Smokeless Tobacco: Never Alcohol Use Standard Drinks/Week Comments Never 0 (1 standard drink = 0.6 oz pur e alcohol) Comments No Sex and Gender Information Value Date Recorded Sex Assigned at Not on file Legal Sex Female 9:19 AM CDT Gender Identity Not on file Sexual Orientation Not on file Last Filed Vital Signs Vital Sign Reading Time Taken Comments Blood Pressure 15/7 11/16/2021 3:22 PM CDT Pulse 80 11/16/2021 3:22 PM CDT Temperature 36.7 C (98 F) 11/16/2021 3:22 PM CDT Respiratory Rate 18 11/16/2021 3:22 PM CDT Oxygen Saturation 100% 11/16/2021 3:22 PM CDT Inhaled Oxygen Concentration - - Weight 97.1 kg (214 lb) 11/15/2021 12:02 PM CDT Height 152.4 cm (5') 11/15/2021 3:45 PM CDT Body Mass Index 41.79 11/15/2021 12:02 PM CDT Plan of Treatment Health Maintenance Due Date Last Done Comments DTAP/TDAP/TD VACCINES (1 - Tdap) 01/21/2012 HEPATITIS B VACCINES (1 of 3 - 19+ 3-dose series) 01/21/2012 HPV/Cotest (21-29) 2014 HPV VACCINES (1 - 3-dose SCDM series) 01/21/2020 CERVICAL CANCER SCREENING 2023 HPV/Cotest (30-65) 2023 PAP SMEAR 2023 INFLUENZA VACCINE (#1) 2024 COVID-19 Vaccine (2024- season) 2024, 06/12/2021 Medical Devices Implanted Type Area Tape Cutter Device Identifier Shelf Expiration Date Model / Serial / Lot Seamguard Endogia 60 Blk [id number] - [id number] Implanted:Qty : 1 on 11/15/2021 by Aurelio Holt MD at [facility] Biological N/A: Stomach [employer] 06/28/2024 [id number] / / [id number] Seamguard Endogia 60 Blk [id number] - [id number] Implanted:Qty : 1 on 11/15/2021 by Aurelio Holt MD at [facility] Biological N/A: Stomach [employer] 06/28/2024 [id number] / / [id number] Seamguard Endogia 60 Prpl [id number] - [id number] Implanted:Qty : 1 on 11/15/2021 by Aurelio Holt MD at [facility] Biological N/A: Stomach [employer] 06/29/2024 [id number] / / [id number] Seamguard Endogia 60 Prpl [id number] - [id number] Implanted:Qty : 1 on 11/15/2021 by Aurelio Holt MD at [facility] Biological N/A: Stomach [employer] 06/29/2024 [id number] / / [id number] Insurance BCBS TRADITIONAL RX [facility] [place] Advance Directives For more information, please contact: [phone] * Full Code (Latest Code Status on File) Date Activated Date Inactivated Comments 11/15/2021 11:50 AM 11/16/2021 6:39 PM Care Teams Public Works Inspector Relationship Specialty Start Date End Date Raul Montoya MD [address] [address] PCP - General Internal Medicine 11/09/21
[2024-12-30 15:30] VITALS: BP 133/83; PULSE 89; RESP 16; TEMP 37.2; O2SAT 100
[2024-12-30 16:09] LABS: EDUAAPPEAR Cloudy; EDUABILI Negative (Negative); EDUABLOOD Trace (Negative); EDUACOLOR1 Dark; EDUAGLUCOSE Negative (Negative); EDUAKETONE Negative (Negative); EDUALEUKO 1+ (Negative); EDUANITRATE Positive (Negative); EDUAPH 6.0; EDUAPROTEIN 2+ (Negative); EDUASPGRAVITY 1.030; EDUAUROBILI 0.2
--- NOTE | 2024-12-30 16:14 | ED.FEMALEGU ---
HPI - Female Genitourinary General Chief complaint: Urogenital-Female Stated complaint: UTI Time Seen by Provider: 12/30/24 16:05 Source: patient and RN notes reviewed Mode of arrival: ambulatory Limitations: no limitations History of Present Illness HPI Narrative: 29-year-old female presents Express Care complaining of urinary symptoms for 2-3 days. Patient reports having dysuria, increased frequency, hesitancy. Patient denies any fevers, abdominal pain, body aches, chills, nausea, vomiting, diarrhea, vaginal bleeding, vaginal discharge, or blood in her urine. Patient denies any concerns for STIs. Patient has not taken anything [id number] for symptoms. Patient denies any significant past medical history. Related Data Home Medications ?Medication ?Instructions ?Recorded ?Confirmed ?Last Taken ?Type vit no.95-ferrous 1 tablet PO DAILY 04/05/21 09/18/23 09/14/23 08:00 History fumarate 28 mg-folic acid 800 mcg tablet () famotidine 10 mg tablet 10 mg PO BID 08/03/23 09/18/23 09/17/23 17:00 History iron 18 mg tablet 45 mg PO BID 08/03/23 08/03/23 09/17/23 17:00 History ondansetron 4 mg disintegrating 4 mg PO Q6H PRN Nausea 08/03/23 09/18/23 09/14/23 13:00 History tablet sertraline 50 mg tablet 100 mg PO DAILY 08/03/23 09/18/23 09/18/23 07:00 History vitamin A 10,000 unit tablet 10,000 unit PO DAILY 08/03/23 09/18/23 09/14/23 07:00 History Allergies Allergy/AdvReac Type Severity Reaction Status Date / Time adhesive tape Allergy Redness of Verified 12/30/24 15:31 Skin iron (From Venofer) Allergy Anaphylaxis Verified 12/30/24 15:31 Review of Systems Review of Systems: CONSTITUTIONAL: Denies fever, chills, body aches, or sweats. EYES: Denies visual changes, redness, or discharge. ENT: Denies rhinorrhea, congestion, sore throat, or otalgia. CARDIOVASCULAR: Denies chest pain, palpitations, or edema. RESPIRATORY: Denies cough or dyspnea. GASTROINTESTINAL: Denies abdominal pain, nausea, vomiting, or diarrhea. GENITOURINARY: Positive for dysuria, hesitancy, increased frequency. Negative for hematuria, vaginal bleeding, vaginal discharge,. SKIN: Denies rash or itching. MUSCULOSKELETAL: Denies back pain, joint pain, or myalgia. NEUROLOGIC: Denies headache, numbness, or weakness. PSYCHIATRIC: Denies anxiety or depression. All other systems reviewed are negative, except as documented in HPI. [facility] Past Medical History Medical History Asthma Depression ADHD Morbid obesity Family History Family History Mother Hypertension Social History Social History Smoking packs per day: 0.5 Smoking cigarettes per day: 10.0 Years smoked: 5 Smoking pack-years: 2.50 Smoking status: Never smoker Tobacco type: cigarettes Substance use: never Do You Feel Safe in your Home?: Yes Lack of Transportation: No Lack of Food: Never True Current Housing: I Have Housing Concerned About Future Housing: No Difficulty Paying Gas/Electric Bills: No Difficulty Paying for Meds: No Currently Unemployed: No Education: High School Diploma/GED Difficulty w/ Childcare or Family Care: No Spiritual care concerns: No Comments At the time of my signature, I reviewed and agree with the nursing past medical, surgical, social, and family history. There is no relevant family history pertinent to the patient complaint. Exam Narrative: GENERAL: This is a well-nourished, well-developed adult, in no apparent distress. They are non ill-appearing, nontoxic appearing. HEAD: normocephalic, atraumatic. EYES: Sclera clear/white. Vision is grossly intact. Conjunctiva normal bilaterally. Extraocular movements intact. EARS: External ears normal,Hearing grossly intact. NOSE: External nose normal THROAT: Mucous membranes moist NECK: Normal range of motion CARDIOVASCULAR: Regular rate and rhythm. Normal S1-S2. No clicks, gallops, rubs, murmurs. RESPIRATORY: Respiratory rate normal, respiratory effort nonlabored, no respiratory distress. Lung sounds clear to auscultation throughout. Lung sounds equal bilaterally. No adventitious lung sounds. GASTROINTESTINAL: Abdomen soft, flat, non-tender, nondistended. Bowel sounds are active. No hepato-splenomegaly, or palpable masses. No guarding or rigidity. No rebound tenderness. SKIN: warm, Dry, intact with no suspicious lesions or rash, good texture and turgor. NEURO: awake, alert, and oriented to person, place and time. There were no obvious focal neurologic abnormalities. EXTREMITIES: No joint tenderness, effusion, or edema noted. BACK: Nontender without deformity. No CVA tenderness. Course Course Emergency Course: Portions of this record may have been created with voice recognition software Level of Care: Express Care Visit Vital Signs Vital signs: Vital Signs Temperature 99.0 F 12/30/24 15:30 Pulse Rate 89 12/30/24 15:30 Respiratory Rate 16 12/30/24 15:30 Blood Pressure 133/83 12/30/24 15:30 Pulse Oximetry 100 12/30/24 15:30 Oxygen Delivery Room Air 12/30/24 15:30 Temperature 99.0 F 12/30/24 15:30 Pulse Rate 89 12/30/24 15:30 Respiratory Rate 16 12/30/24 15:30 Blood Pressure 133/83 12/30/24 15:30 Pulse Oximetry 100 12/30/24 15:30 Oxygen Delivery Room Air 12/30/24 15:30 MDM - Female Genitourinary MDM Narrative Medical decision making narrative: Urine dipstick shows evidence of urinary tract infection. Urine culture pending. Patient's symptoms are consistent with urinary tract infection. No CVA tenderness. No systemic symptoms. Will treat her with Macrobid. Discussed physical exam findings. Advised supportive measures and signs/symptoms to go to the ER. Pt is appropriate for outpt treatment and f/u. Differential Diagnosis Differential diagnosis: Likely urinary tract infection, cystitis and other (Pyelonephritis) Lab Data Attestation: I reviewed the patient's lab results. Labs: Lab Results 12/30/24 Range/Units 15:46 POC Urine Color Dark POC Urine Clarity Cloudy POC Urine pH 6.0 POC Ur Specif [place] 1.030 POC Urine Protein 2+ (Negative) POC Ur Glucose (UA) Negative (Negative) POC Urine Ketones Negative (Negative) POC Urine Blood Trace (Negative) POC Urine Nitrite Positive (Negative) POC Urine Bilirubin Negative (Negative) POC Urine Urobilinogen 0.2 POC U Leukocyte Esteras 1+ (Negative) Discharge Plan Discharge Clinical Impression: Urinary tract infection Qualifiers: Urinary tract infection type: site unspecified Hematuria presence: with hematuria Qualified Code(s): N39.0 - Urinary tract infection, site not specified Patient Disposition: Home Condition: Stable Instructions: Antibiotic Form, Urinary Tract Infection in Women (ED) Additional Instructions: Take the antibiotic as prescribed The urine will be sent of for a culture to identify what type of bacteria is causing your infection. If the culture shows that the antibiotic will not get rid of your infection, you will be notified and a new antibiotic will be called in for you. Increase water intake you will need to follow up with your PCP 3-5 days. Go to the ER for any worsening symptoms, abdominal pain, fevers, nausea, vomiting, or any other concerns Patient Language: Yoruba Prescriptions: New nitrofurantoin monohyd/m-cryst [Macrobid] 100 mg capsule 100 mg PO Q12H 5 Days Qty: 10 0RF Rx Instructions: must administer with a meal/food No Action famotidine 10 mg Tablet 10 mg PO BID ondansetron 4 mg Tablet,Disintegrating 4 mg PO Q6H PRN (Reason: Nausea) sertraline 50 mg Tablet 100 mg PO DAILY vitamin A 10,000 unit Tablet 10,000 unit PO DAILY iron 18 mg Tablet 45 mg PO BID oxycodone-acetaminophen 5-325 mg tablet 1 tablet PO Q4H PRN (Reason: pain) Qty: 25 0RF PNV no.95-ferrous fumarate-FA [] 28 mg iron- 800 mcg Tablet 1 tablet PO DAILY Follow-up/Referrals: Rigo Rashid MD [Primary Care Provider, CARPET WEAVER] Time of Disposition: 16:13
== END 2024-12-30 16:16 | disposition home or self-care (01) ==
PROVIDERS: PCP Obstetrics & Gynecology
DX: N39.0 Urinary tract infection, site not specified (principal); J45.909 Unspecified asthma, uncomplicated; F32.A Depression, unspecified; E66.01 Morbid (severe) obesity due to excess calories; Z68.22 Body mass index [BMI] 22.0-22.9, adult; F17.210 Nicotine dependence, cigarettes, uncomplicated
CPT/HCPCS: 81003; 87086; 87186; 99213; G0463

== ENCOUNTER 2025-03-29 15:30 | Emergency (ER) | payer BC, SELFPAY ==
--- OUTSIDE RECORDS SUMMARY | 2025-03-29 15:32 | XMS_ITS | Clinical Summary ---
Author Organization [facility] Address [address] [address] Phone Care Team Providers Care Apple Press Operator Name Role Phone Ralu Montoya MD Primary Care Provider [phone] Allergies Active Allergy Reactions Criticality Noted Date [...] 19+ 3-dose series) 01/21/2012 HPV/Cotest (21-29) 2014 CERVICAL CANCER SCREENING 2023 HPV/Cotest (30-65) 2023 PAP SMEAR 2023 INFLUENZA VACCINE (#1) 2024 COVID-19 Vaccine ( season) 2024, 06/12/2021 HPV VACCINES (No Doses Required) Completed Medical Devices Implanted Type Area Lasting Room Machine Operator Device Identifier Shelf Expiration Date Model / Serial / Lot Seamguard Endogia 60 Blk [id number] - [id number] Implanted:Qty : 1 on 11/15/2021 by Aurelio Holt MD at [facility] Biological N/A: Stomach [employer] 06/28/2024 [id number] / / [id number] Seamguard Endogia 60 Blk [id number] - [id number] Implanted:Qty : 1 on 11/15/2021 by Aurelio Holt MD at [facility] Biological N/A: Stomach [employer] 06/28/2024 [id number] / / [id number] Seamguard Endogia 60 Prpl [id number] - [id number] Implanted:Qty : 1 on 11/15/2021 by Aurelio Holt MD at [facility] Biological N/A: Stomach [employer] 06/29/2024 [id number] / / [id number] Seamguard Endogia 60 Prpl [id number] - [id number] Implanted:Qty : 1 on 11/15/2021 by Aurelio Holt MD at [facility] Biological N/A: Stomach [employer] 06/29/2024 [id number] / / [id number] Insurance [place] TRADITIONAL RX [facility] [employer] Advance Directives For more information, please contact: [phone] * Full Code (Latest Code Status on File) Date Activated Date Inactivated Comments 11/15/2021 11:50 AM 11/16/2021 6:39 PM Care Teams Apple Press Operator Relationship Specialty Start Date End Date Raul Montoya MD [address] [address] PCP - General Internal Medicine 11/09/21
--- OUTSIDE RECORDS SUMMARY | 2025-03-29 15:33 | XMS_ITS | Data Portability ---
Author Organization [facility] Address [address] [address] Assessment Encounter Date Assessment Date Assessment LastModified by Organization Details LastModified Time 09/06/2023 09/06/2023 Patient is ___weeks . Discussed plan. [email or web address] Not available 09/06/2023 12:08:20 09/14/2023 09/14/2023 Patient is ___weeks . Discussed plan. [email or web address] Not available 09/14/2023 12:28:20 Plan of Treatment Reminders Order Date Submit Date Provider Last Modified By Organization Details Last Modified Time Details Appointments None recorded. Lab CBC w/ auto diff 2023 024 [facility] (Lab), [address] [place], [address], 4 05:27:48 iron + TIBC + ferritin, serum 2023 024 [facility] (Lab), [address] [place], [address], 4 05:27:49 Referral None recorded. Procedures None recorded. Surgeries section (SURG) 2023 024 [id number], [address], [place], [address], 4 11:21:23 Imaging US, obstetric, follow-up 2023 024 [email or web address], [address], [place], [address], 20:11:59 Medication Orders None recorded. Patient TargetsNo targets recorded. Patient InstructionsNo instructions recorded. Reason for Referral None Reported. Results Created Date Observation Date Name Description Value Unit Range Abnormal Flag Note LastModifiedBy Organization Detail LastModifiedTime 09/06/19 24 09/06/2023 CBC W/DIF F WBC 7.4 10'3/ uL 3.5-10 .5 Not Available [facility] (Lab) [address], [place], [address], 09/07/2023 05:27:48 09/06/19 24 09/06/2023 CBC W/DIF F RBC 4.56 10'6/ uL (based on docume nted legal sex) 3.80-5 .20 Not Available [facility] (Lab) [address], [place], [address], 09/07/2023 05:27:48 09/06/19 24 09/06/2023 CBC W/DIF F HGB 11.9 g/dL (based on docume nted legal sex) 11.6-1 5.4 Not Available [facility] (Lab) [address], [place], [address], 09/07/2023 05:27:48 09/06/19 24 09/06/2023 CBC W/DIF F HCT 39.5 % (based on docume nted legal sex) 34.0-4 5.0 Not Available [facility] (Lab) [address], [place], [address], 09/07/2023 05:27:48 09/06/19 24 09/06/2023 CBC W/DIF F MCV 86.6 fL 80.0-9 9.0 Not Available [facility] (Lab) [address], [place], [address], 09/07/2023 05:27:48 09/06/19 24 09/06/2023 CBC W/DIF F MCH 26.1 pg 27.0-3 4.0 low Not Available [facility] (Lab) [address] [facility], [place], [address], 09/07/2023 05:27:48 09/06/19 24 09/06/2023 CBC W/DIF F MCHC 30.1 g/dL 32.0-3 5.5 low Not Available [facility] (Lab) [address] [facility], [place], [address], 09/07/2023 05:27:48 09/06/19 24 09/06/2023 CBC W/DIF F RDW 20.5 % 11.0-1 5.0 high Not Available [facility] (Lab) [address] [facility], [place], [address], 09/07/2023 05:27:48 09/06/19 24 09/06/2023 CBC W/DIF F plt 239 10'3/ uL 150-40 0 Not Available [facility] (Lab) [address] [facility], [place], [address], 09/07/2023 05:27:48 09/06/19 24 09/06/2023 CBC W/DIF F MPV 12.9 fL 8.8-12 .1 high Not Available [facility] (Lab) [address] [facility], [place], [address], 09/07/2023 05:27:48 09/06/19 24 09/06/2023 CBC W/DIF F NRBC's 0.0 % 0.0 Not Available [facility] (Lab) [address] [facility], [place], [address], 09/07/2023 05:27:48 09/06/19 24 09/06/2023 CBC W/DIF F absolute NRBCs 0.0 10'3/ uL no refere nce range establ ished Not Available [facility] (Lab) [address] [place], [address], 09/07/2023 05:27:48 09/06/19 24 09/06/2023 CBC W/DIF F neutrophils 61.5 % 34.0-7 3.0 Not Available [facility] (Lab) [address], [place], [address], 09/07/2023 05:27:48 09/06/19 24 09/06/2023 CBC W/DIF F lymphocytes 28.6 % 15.0-5 0.0 Not Available [facility] (Lab) [address] [facility], [place], [address], 09/07/2023 05:27:48 09/06/19 24 09/06/2023 CBC W/DIF F monocytes 8.5 % 1.0-15 .0 Not Available [facility] (Lab) [address] [place], [address], 09/07/2023 05:27:48 09/06/19 24 09/06/2023 CBC W/DIF F eosinophils 0.5 % 0.0-8. 0 Not Available [facility] (Lab) [address] [facility], [place], [address], 09/07/2023 05:27:48 09/06/19 24 09/06/2023 CBC W/DIF F basophils 0.5 % 0.0-2. 0 Not Available [facility] (Lab) [address] [place], [address], 09/07/2023 05:27:48 09/06/19 24 09/06/2023 CBC W/DIF F immature granulocytes 0.4 % no define d refere nce range Not Available [facility] (Lab) [address] [place], [address], 09/07/2023 05:27:48 09/06/19 24 09/06/2023 CBC W/DIF F absolute neutrophils 4.5 10'3/ uL 1.5-8. 0 Not Available [facility] (Lab) [address] [place], [address], 09/07/2023 05:27:48 09/06/19 24 09/06/2023 CBC W/DIF F absolute lymphocytes 2.1 10'3/ uL 1.0-4. 0 Not Available [facility] (Lab) [address] [facility], [place], [address], 09/07/2023 05:27:48 09/06/19 24 09/06/2023 CBC W/DIF F absolute monocytes 0.6 10'3/ uL 0.2-1. 0 Not Available [facility] (Lab) [address] [facility], [place], [address], 09/07/2023 05:27:48 09/06/19 24 09/06/2023 CBC W/DIF F absolute eosinophils 0.0 10'3/ uL 0.0-0. 6 Not Available [facility] (Lab) [address] [facility], [place], [address], 09/07/2023 05:27:48 09/06/19 24 09/06/2023 CBC W/DIF F absolute basophils 0.0 10'3/ uL 0.0-0. 3 Not Available [facility] (Lab) [address] [facility], [place], [address], 09/07/2023 05:27:48 09/06/19 24 09/06/2023 CBC W/DIF F absolute immature granulocytes 0.0 10'3/ uL 0.00-0 .10 2023 3:11 AM: P indic ates parti al resul ts on a panel have been relea sed. Addit ional resul ts will follo w. 2023 3:11 AM: This resul t has been final verif ied. No addit ional or moreira ed resul ts are expec shaka. Not Available [facility] (Lab) [address] [facility], [place], [address], 09/07/2023 05:27:48 09/06/19 24 09/06/2023 DION TIN / IRON / TRANS DION N / TIBC iron 96 ug/dL 40-170 Not Available [facility] (Lab) [address] [facility], [place], [address], 09/07/2023 05:27:49 09/06/19 24 09/06/2023 DION TIN / IRON / TRANS DION N / TIBC transferrin 333 mg/dL 200-36 0 Not Available [facility] (Lab) [address] [facility], [place], [address], 09/07/2023 05:27:49 09/06/19 24 09/06/2023 DION TIN / IRON / TRANS DION N / TIBC ferritin 18.0 NG/mL 8.0-25 2.0 Not Available [facility] (Lab) [address] [facility], [place], [address], 09/07/2023 05:27:49 09/06/19 24 09/06/2023 DION TIN / IRON / TRANS DION N / TIBC TIBC 466 ug/dL 250-45 0 high Not Available [facility] (Lab) [address] [facility], [place], [address], 09/07/2023 05:27:49 09/06/19 24 09/06/2023 DION TIN / IRON / TRANS DION N / TIBC iron saturation 21 % 20-55 Not Available [facility] (Lab) [address] [facility], [place], [address], 09/07/2023 05:27:49 08/09/19 24 08/09/2023 US, marcelino nunez follo w-up No observ ation record ed. carmel [facility] [address], [place], [address], 08/09/2023 16:35:45 08/09/19 24 08/09/2023 US, abrahame tric, follo w-up No observ ation record ed. [email or web address] [address], [place], [address], 08/11/2023 07:45:51 09/06/19 24 09/06/2023 US, obste tric, 2nd or 3rd trime ster No observ ation record ed. [email or web address] Z[address], [place], [address], 09/07/2023 12:02:31 09/06/19 24 09/06/2023 US, obste tric, follo w-up No observ ation record ed. [email or web address] [address], [place], [address], 09/07/2023 15:38:33 Result Notes None recorded. Problems Name Problem SNOMED Code Status Onset Date Resolution Date Notes Provider Name and Address Organization Details Recorded Time History of [facility] [id number] Completed Linda hurt, [facility] 2 13:35:36 Obesity 378208617 Completed BMI 44.6 - testing 34 wks weekly - sheet given to SB for ashwin to schedule 03/01 Linda contreras null, [facility] 2 13:35:36 History of bariatri c surgical procedur e 858138438 Completed gastric sleeve 11/2021; labs q trimester (CBC, ferritin, Fe, Ca, VitD, Maryan); recommend fingersti cks instead of GCT Dannie Santana [facility], [facility] 4 15:13:48 Past pregnanc y history of section 622322223 Completed desires RCS Dannie Santana [facility], [facility] 4 15:13:48 Past pregnanc y history of section 007921205 Active desires TOMÁS Santana [facility], [facility] 4 15:13:48 History of bariatri c surgical procedur e 782595132 Active gastric sleeve 11/2021; labs q trimester (CBC, ferritin, Fe, Ca, VitD, Maryan); recommend fingersti cks instead of GCT Dannie Santana [facility] 4 15:13:48 Pregnanc y 51390969 Completed 202005/25/2021 Dannie Santana [facility] 4 15:13:51 Pregnanc y 75500459 Completed 202209/22/2023 Dannie Santana [facility] 4 15:13:51 SARS-CoV -2 Completed 2023 Serial growth & ASA Dannie Santana [facility] 4 15:13:48 SARS-CoV -2 Active 2023 Serial growth & ASA Dannie hurt, [facility] 4 15:13:48 Anemia 859799484 Completed 2023 IV iron order sent 07/16- dose reaction to venofer 08/06 SLo fe BID & recheck labs 2wks Dannie Satnana [facility] 4 15:13:48 Anemia 016084398 Active 2023 IV iron order sent 07/16- dose reaction to venofer 08/06 SLo fe BID & recheck labs 2wks Dannie hurt, [facility] 4 15:13:48 Problem Notes None recorded. Procedures Surgical History Date Name Laterality Status Provider Name and Address Organization Details Recorded Time [facility] 14:06:53 3 Date of Last Pap Smear [facility] 12:29:11 2 section completed Josy Alejandre [facility] 06/07/2022 15:23:02 Imaging Results None recorded. Procedure Notes None recorded. Medical Equipment None Reported. Allergies Allergen ID Allergen Name Allergen Category Reaction Reaction Severity Criticality Documentation Date Start Date Code Code System Note Provider Name and Address Organization Details Recorded Time 13464 adhesive environme nt,medica tion rash moderate Not available 09/23/2020 Josy Alejandre [facility], [facility] 1 12:17:54 39419 Venofer medicatio n other moderate Not available 08/07/20232023 31638 9 RxNorm hypot ensio n Jesuskyrie Max [facility] 4 10:35:00 Medications Name Sig Start Date Stop Date Status Note LastModified by Organization Details LastModified Time azithromyci n 250 mg tablet TAKE 2 TABLETS BY MOUTH TODAY, THEN TAKE 1 TABLET DAILY FOR 4 DAYS DIRECTED 09/13 completed Not Available Not Available Not Available hydrocodone 5 mg-acetamin ophen 325 mg tablet TAKE 1 TABLET BY MOUTH EVERY 3 HOURS NEEDED 05/18 completed Not Available Not Available Not Available ondansetron HCl 4 mg tablet 12/17 completed Not Available Not Available Not Available dextroamphe tamine-amph etamine 10 mg tablet TAKE 1 TABLET BY MOUTH TWICE A DAY active Not Available Not Available No t Available sertraline 100 mg tablet TAKE 1 TABLET BY MOUTH EVERY DAY DIRECTED 2024 active Not Available Not Available Not Avai lable oxycodone-a cetaminophe n 5 mg-325 mg tablet TAKE 1 TABLET BY MOUTH EVERY 4 HOURS NEEDED FOR PAIN 10/15 completed Not Available Not Available Not Available amoxicillin 875 mg tablet TAKE 1 TABLET EVERY 12 HOURS DAILY active Not Available Not Available No t Available alprazolam 0.25 mg tablet TAKE 1 TABLET BY MOUTH EVERY 4 HOURS NEEDED FOR PANIC active Not Available Not Available No t Available Ortho-Novum 01/18 (28) 0.5 mg-35 mcg(10)/1 mg-35 mcg(11) tablet TAKE 1 TABLET BY MOUTH EVERY DAY active Not Available Not Available No t Available dextroamphe tamine-amph etamine 15 mg tablet TAKE 1 TABLET BY MOUTH THREE TIMES A DAY active Not Available Not Available No t Available methylpredn isolone 4 mg tablets in a dose pack USE DIRECTED. active Not Available Not Available No t Available norethindro ne (contracept christiano) 0.35 mg tablet TAKE 1 TABLET BY MOUTH EVERY DAY 12/17 completed Not Available Not Available Not Available ondansetron 4 mg disintegrat ing tablet DISSOLVE 1 TABLET ON THE TONGUE EVERY 8 HOURS 10/15 completed Not Available Not Available Not Available sertraline 50 mg tablet TAKE 1 TABLET BY MOUTH EVERY DAY 09/24 completed Not Available Not Available Not Available Nortrel (28) 0.5 mg/0.75 mg/1 mg-35 mcg tablet TAKE 1 TABLET BY MOUTH EVERY DAY active Not Available Not Available No t Available bupropion HCl XL 150 mg 24 hr tablet, extended release TAKE 1 TABLET BY MOUTH EVERY DAY IN THE MORNING active Not Available Not Available No t Available hydrocodone 7.5 mg-acetamin ophen 325 mg/15 mL oral solution 12/17 completed Not Available Not Available Not Available nitrofurant oin monohydrate /macrocryst als 100 mg capsule active Not Available Not Available Not Available Pepcid 10/15 completed Not Available Not Available Not Available 10/15 completed Not Available Not Available Not Available Baby Aspirin 09/24 completed Not Available Not Available Not Available One A Day 10/26 completed Not Available Not Available Not Available One A Day Women's DHA 06/16 completed Not Available Not Available Not Available OneTouch Verio test strips 06/16 completed Not Available Not Available Not Available lancets 30 gauge Use as directed 4 times a day 10/15 completed Not Available Not Available Not Available OneTouch Delica Plus Lancet 33 gauge 06/16 completed Not Available Not Available Not Available OneTouch Verio Reflect Meter 06/16 completed Not Available Not Available Not Available Vitals Date Recorded Body weight Provider Name an d Address Organization Details Last Updated DateTime 09/06/2023 51035.178858 g Kathy GONZALEZ [address], [place], [address], [facility] 09/06/2023 12:22:42 Date Recorded Body height Body mass index (BMI) Systolic And Diastolic Provider Name and Address Organization Details Last Updated DateTime 09/06/2023 151.77 cm 28.6 kg/m2 120/76 mm[Hg] Bibiana Green [facility] 09/06/2023 12:08:56 Date Recorded Body height Body mass index (BMI) Body weight Systolic And Diastolic Provider Name and Address Organization Details Last Updated DateTime 09/14/2023 151.77 cm 28 kg/m2 33681.116 54 g 115/82 mm[Hg] Karlie Leigh [facility] 09/14/2023 12:28:33 Date Recorded Body height Body mass index (BMI) Body weight Systolic And Diastolic Provider Name and Address Organization Details Last Updated DateTime 09/25/2023 151.77 cm 24.2 kg/m2 70161.86 g 121/83 mm[Hg] Karlie Leigh [facility] 09/25/2023 14:05:16 Date Recorded Body height Body mass index (BMI) Body weight Systolic And Diastolic Provider Name and Address Organization Details Last Updated DateTime 10/16/2023 151.77 cm 23 kg/m2 78712.31 g 126/79 mm[Hg] Pilar Ochoa [facility] 10/16/2023 14:33:14 Social History Question Answer Notes LastModified by Organizat ion Details LastModified Time Tobacco Smoking Status Former Smoker [facility] 04/19/2023 14:49:01 Do You Have An Advance Directive? No [email or web address] Information n ot available 09/23/2020 If You Are , What Was Your Level Of Alcohol Consumption Prior To ? None [email or web address] Information not available 04/19/2023 Are You Blind Or Do You Have Difficulty Seeing? No [email or web address] Information n ot available 09/23/2020 What Is Your Level Of Caffeine Consumption? Moderate [email or web address] Information not available 01/21/2021 How Much Tobacco Do You Chew? None [email or web address] Information not available 09/23/2020 In The 14 Days Before Symptom Onset, Have You Had Close Contact With A Laboratory-confirm ed COVID-19 While That Case Was Ill? No [email or web address] Information n ot available 09/23/2020 In The 14 Days Before Symptom Onset, Have You Had Close Contact With A Person Who Is Under Investigation For COVID-19 While That Person Was Ill? No [email or web address] Information not available 09/23/2020 Have You Been To An Area Known To Be High Risk For COVID-19? No [email or web address] Information not available 09/23/2020 Are You Deaf Or Do You Have Serious Difficulty Hearing? No [email or web address] Information not available 09/23/2020 What Type Of Diet Are You Following? REGULAR [email or web address] Information n ot available 09/23/2020 What Is The Highest Grade Or Level Of School You Have Completed Or The Highest Degree You Have Received? [id number] [email or web address] Information not available 09/23/2020 Are There Any Guns Present In Your Home? No [email or web address] Information not available 09/23/2020 Have You Ever Been Counseled For Unhealthy Alcohol Use? No [email or web address] Information not available 04/19/2023 Do You Use Protection During Sex? No [email or web address] Information not available 09/23/2020 Do You Use Your Seat Belt Or Car Seat Routinely? Yes [email or web address] Information not available 09/23/2020 Do You Have Smoke And Carbon Monoxide Detectors In Your Home? Yes [email or web address] Information not available 09/23/2020 How Much Tobacco Do You Smoke? No [email or web address] Information not available 09/23/2020 Do You Use Sunscreen Routinely? Yes Information not available 09/23/2020 Has Tobacco Cessation Counseling Been Provided? No [email or web address] Information not available 04/19/2023 Have You Used IV Drugs? No [email or web address] Information not available 09/23/2020 Do You Have Difficulty Walking Or Climbing Stairs? No Information not available 04/19/2023 Sex: Unknown Functional Status Question Answer Note LastModified by Organizat ion Details LastModified Time Do you use any illicit or recreational drugs? No [email or web address] Information not available 09/23/2020 Do you or have you ever used any other forms of tobacco or nicotine? Yes [email or web address] Information not available 04/19/2023 What is your level of alcohol consumption? Occasional [email or web address] Information not available 09/23/2020 Do you or have you ever used smokeless tobacco? Never used smokeless tobacco Information not available 04/19/2023 Are you able to walk independently without assistance or assistive devices? YESWOREST [email or web address] Information not available 09/23/2020 Are you able to care for yourself independently? 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 No [email or web address] Information not available 04/19/2023 Do you or have you ever used e-cigarettes or vape? Former user of electronic cigarettes [email or web address] Information not available 04/19/2023 What is your exercise level? Occasional [email or web address] Information not available 09/23/2020 Mental Status Question Answer Note LastModified by Organization D etails LastModified Time Do you feel stressed (tense, restless, nervous, or anxious, or unable to sleep at night)? [id number] Information not available 09/23/2020 Family History Relationship Description Onset Age of this Age Resolved Age Notes LastModified by Organization Details LastModified Time Unspecified Relation Malignant neoplasm of ovary [facility] [email or web address] Not available 02/22/2023 12:12:33 Unspecified Relation Malignant neoplasm of ovary [email or web address] Not available 2023 14:29:41 Father Substance abuse [email or web address] Not available 2023 14:29:41 Mother Depressive disorder Not available 2023 14:29:41 Mother Anxiety disorder [email or web address] Not available 2023 14:29:41 Medical History Condition Response Other N Blood Transfusion N Dermatologic Disorders N Gestational Diabetes N Anxiety Disorder Y Autoimmune disease N Arthritis N Polyps N Infertility N Acid Reflux (GERD) N Cancer N Varicosities N Stroke N Neurologic/Epilepsy Y Fibromyalgia N Headaches N Kidney Disease N Heart Problems N Kidney or Bladder Problems N Eating Disorder Y Art (IVF or FET) N Hepatitis/Liver Disease N No Past Medical History N Urinary Tract Infection Y Asthma N Trauma/Violence N Thrombophilias N Allergies (Food, seasonal, environmental ) Y Breast Cancer N Drug/Latex Allergies/Reactions Y Lung Disease N Defects or Inherited Disease N Breast Problem N Hematologic disorders N Anesthesia Complications N History of STI N Deep Vein Thrombosis N Polycystic ovary syndrome N History of abnormal pap N Endometriosis N High Cholesterol N Thyroid Problems N GI Problems Y Anemia N Psychiatric Illness Y Ovarian Cancer N Diabetes N Pulmonary (TB, Asthma) N Eczema N Abuse/Domestic Violence N Depression/ depression Y Heart Disease N Pre-Eclampsia N Hypertension N Osteoporosis N Gynecological History Statement/Question Response Abnormal Pap N Date of Last Mammogram Date of LMP 12/17/2022 On BCP's at Conception? N N Was last menstrual period normal N STIs/STDs N HPV Vaccine N Current Control Method None Are cycles usually normal N Sexually Active? Y Menses Monthly N Date of DEXA bone scan Age of first menstrual cycle 9 Date of Last Pap Smear 02/23/2023 Sexual Problems? N LMP Unknown N Obstetrics History GPAL:G 2 P 2 0 0 2 Type Value Full Term 2 Living 2 Total 2 Immunizations Vaccine Type Date Status Note Provider Nam e and Address Organization Details Recorded Time COVID-19, mRNA, LNP-S, PF, 30 mcg/0.3 mL dose, victorino-sucrose 07/03/2021 completed Josy Alejandre [facility] 12/17/2021 11:31:45 Past Encounters Encounter ID Performer Location Encounter Start Date Encounter Closed Date Diagnosis/Indication Diagnosis SNOMED-CT Code Diagnosis ICD10 Code Diagnosis IMO Codes Diagnosis Note [id number] Tanja Murdock CNM Daniels [address] [address] 09/23/2020 11:46:08 09/23/2020 12:43:13 test positive 065843395 Z32.01 Gynecologi c examination 47026900 Z01.419 Amenorrhea 31189584 N91. 2 [id number] Zohaib Barros MD Daniels [address],[place] [address] 09/23/2020 11:47:42 09/23/2020 12:58:36 [id number] Zohaib Barros MD Daniels [address],[place] [address] 10/26/2020 11:22:28 10/26/2020 11:55:57 screening 430595124 Z36.82 [id number] MD Jimmy More [address],[place] [address] 10/26/2020 11:23:08 10/26/2020 13:18:43 Routine care 220411212 Z34.01 [id number] MD Jimmy More [address],[place] [address] 11/23/2020 10:58:15 11/23/2020 12:13:07 Routine care 209012042 Z34.91 [id number] Nataly Chaney [facility] [address],[place] [address] 12/21/2020 10:02:34 12/21/2020 11:12:57 Routine care 559473390 Z34.92 [id number] Zohaib Barros MD [facility] [address],[place] [address] 12/21/2020 10:02:06 12/21/2020 11:13:07 screening for malformation 597157549 Z36.3 [id number] MD Jimmy More [address],[place] [address] 12/23/2020 14:52:20 12/23/2020 15:19:13 Threatened premature labor - not delivered 625977424 O47.9 at risk cervix possibly, to image. [id number] MD Jimmy More [address],[place] [address] 12/29/2020 10:59:51 12/29/2020 12:37:38 Vaginal discharge 253405566 N89.8 [id number] MD Jimmy More [address],[place] [address] 01/21/2021 11:33:21 01/21/2021 12:38:30 screening 425730424 Z36.2 [id number] MD Jimmy More [address],[place] [address] 01/21/2021 11:35:08 01/21/2021 12:52:03 Routine care 986832577 Z34.91 [id number] MD Jimmy More [address] [address],[place] [address] 02/15/2021 11:21:13 02/15/2021 12:32:23 screening [id number] Z36.2 [id number] MD Jimmy More [address],[place] [address] 1 02/15/2021 11:22:01 02/15/2021 12:32:05 Routine care 137882545 Z34.91 [id number] Zohaib Barros MD Daniels [address],[place] [address] 1 03/01/2021 11:19:23 03/01/2021 11:44:28 Routine care 940301270 Z34.91 [id number] Zohaib Barors MD [facility] [address],[place] [address] 1 03/15/2021 10:59:03 03/15/2021 11:55:09 Routine care 321552066 Z34.91 [id number] [facility] [address],[place] [address] 03/30/2021 11:22:10 03/30/2021 11:58:08 Routine care 877253298 Z34.92 [id number] Dominique Thompson MD [facility] [address],[place] [address] 1 03/30/2021 11:23:03 03/30/2021 12:44:49 Maternal obesity complicating , childbirth and the puerperium, antepartum 0835227257 07 O99.213 [id number] Dominique Thompson MD [facility] [address],[place] [address] 1 03/30/2021 11:23:37 03/30/2021 13:18:07 Maternal obesity complicating , childbirth and the puerperium, antepartum 9360122861 07 O99.213 Z3A.34 [id number] Nataly Chaney [facility] [address],[place] [address] 1 04/06/2021 09:31:56 04/06/2021 11:23:52 Routine care 360774315 Z34.92 [id number] Dominique Thompson MD [facility] [address],[place] [address] 1 04/06/2021 09:30:31 04/06/2021 10:49:41 Maternal obesity complicating , childbirth and the puerperium, antepartum 6346230344 07 O99.213 [id number] Zohaib Barros MD [facility] [address],[place] [address] 1 04/06/2021 09:31:09 04/06/2021 11:23:39 Maternal obesity complicating , childbirth and the puerperium, antepartum 2921117732 07 O99.213 Z3A.35 [id number] Zohaib Barros MD [facility] [address],[place] [address] 1 04/13/2021 11:00:03 04/13/2021 14:01:01 Gestational diabetes mellitus class A1 89204879 O24.410 [id number] Zohaib Barros MD [facility] [address],[place] [address] 1 04/13/2021 11:01:43 04/13/2021 13:34:34 Maternal obesity complicating , childbirth and the puerperium, antepartum 3291107750 07 O99.213 Z3A.36 [id number] Zohaib Barros MD [facility] [address],[place] [address] 1 04/13/2021 11:02:46 04/13/2021 13:21:41 Routine care 026041377 Z34.91 [id number] Nataly Chaney [facility] [address],[place] [address] 1 04/20/2021 11:03:45 04/20/2021 15:06:14 Routine care 174807549 Z34.92 [id number] Zohaib Barros MD [facility] [address],[place] [address] 1 04/20/2021 11:02:34 04/20/2021 12:13:14 condition affecting obstetrical care of mother 241619018 O36.8330 O99.210 Z3A.37 [id number] Zohaib Barros MD [facility] [address],[place] [address] 1 04/20/2021 11:03:23 04/20/2021 15:14:48 Maternal obesity complicating , childbirth and the puerperium, antepartum 7245960041 07 O99.213 [id number] Nataly Chaney [facility] [address],[place] [address] 1 04/27/2021 10:16:47 04/27/2021 12:38:14 Routine care 840759857 Z34.92 [id number] Zohaib Barros MD [facility] [address],[place] [address] 1 04/27/2021 10:15:45 04/27/2021 13:10:42 Maternal obesity complicating , childbirth and the puerperium, antepartum 1982589330 07 O99.213 Z3A.38 [id number] MD Jimmy More [address],[place] [address] 1 04/27/2021 10:16:19 04/27/2021 12:02:54 Maternal obesity complicating , childbirth and the puerperium, antepartum 2565122345 07 O99.213 Z3A.38 [id number] [facility] [address],[place] [address] 05/04/2021 09:30:52 05/04/2021 13:41:15 Routine care 958710712 Z34.92 [id number] Zohaib Barros MD [facility] [address],[place] [address] 1 05/04/2021 09:29:21 05/04/2021 10:09:37 Maternal obesity complicating , childbirth and the puerperium, antepartum 7631550646 07 O99.213 [id number] Zohaib Barros MD [facility] [address],[place] [address] 1 05/04/2021 09:30:21 05/04/2021 10:36:53 Maternal obesity complicating , childbirth and the puerperium, antepartum 3940631316 07 O99.213 Z3A.39 [id number] Nataly Chaney [facility] [address],[place] [address] 1 05/18/2021 15:40:33 05/20/2021 13:48:33 Mixed anxiety and depressive disorder 850752919 F41.8 Pt had a traumatic experience d/t emergency for nrfht. We talked about her and future plans. She has a history of anxiety and depression and feels that has increased. We started her on zoloft a couple days ago. She is coping better. No thoughts of harming herself or others. We have talked about the expected improvemen t timeline with zoloft and will return in 1 week for med check. If any worsening of symptoms she will notify us right away. She does have a good support system and is overall doing well. Postoperative visit 0925 54221 Z09 Doing well surgically . No problems or concerns. [id number] Nataly Chaney CNM [facility] [address],[place] [address] 05/25/2021 11:48:19 05/25/2021 14:05:59 Mixed anxiety and depressive disorder 202220047 F41.8 Pt very happy with zoloft. Would like to continue current dose. Plan to return for routine post in 2 weeks. [id number] Nataly Chaney [facility] [address],[place] [address] 06/17/2021 10:30:49 06/17/2021 11:05:15 state 28965116 Z39.2 Continue to watch for signs/symp toms of post depression . Return one year from last pap smear for a well woman exam. Patient received above instructio ns, and questions have been answered. If you have any questions please call or respond to this email. Patient was made aware of the patient portal and may obtain a paper copy of today's plan if desired [facility] ion care management 627223513 Z30.9 Pt would like to start p.o.p. Discussed importance of taking at the same time every day. Also informed that it may not be as effective as estrogen containing pills. Could consider switching to nortrel after 3 months post . [id number] Tanja Murdock CNM [facility] [address],[place] [address] 12/17/2021 11:21:19 12/17/2021 14:26:24 Gynecologic examination 36049368 Z01.419 [id number] Zohaib Barros MD [facility] [address],[place] [address] 01/30/2023 13:42:14 01/30/2023 14:22:58 Threatened miscarriage 29317906 O20.0 Z3A.01 [id number] Zohaib Barros MD [facility] [address],[place] [address] 02/22/2023 10:54:18 02/22/2023 11:40:31 [id number] [facility] [address],[place] [address] 1 02/22/2023 10:54:41 02/22/2023 13:34:43 Amenorrhea 92014749 N91.2 Nausea and vomiting 1693 1999 R11.2 Gynecologi c examination 20528788 Z01.419 [id number] Zohaib Barros MD [facility] [address],[place] [address] 1 03/15/2023 11:29:19 03/15/2023 12:20:01 screening 059296416 Z36.82 Z3A.12 [id number] DIANA ANGELA MD [facility] [address],[place] [address] 1 03/15/2023 11:30:33 03/15/2023 14:00:54 History of bariatric surgical procedure 360567663 Z98.84 Gestation period, 12 weeks 57935527 Z3A.12 Uterine sc ar from previous surgery affecting 52426900 O34.29 [id number] DIANA ANGELA MD [facility] [address],[place] [address] 04/19/2023 14:47:18 04/19/2023 15:44:58 COVID-19 453629213 U07.1 Past pregn nancy history of section 613353637 Z98.890 History of bariatric surgical procedure 862654376 Z98.84 Gestation period, 17 weeks 07309232 Z3A.17 [id number] Zohaib Barros MD [facility] [address],[place] [address] 05/17/2023 15:25:25 05/17/2023 16:49:05 screening for malformation 927356379 Z36.3 Z86.16 O99.842 Z3A.21 [id number] DIANA ANGELA MD [facility] [address],[place] [address] 1 05/17/2023 15:25:46 05/18/2023 08:46:28 History of bariatric surgical procedure 713150101 Z98.84 Deliveries by 899632610 O82 Gestation period, 21 weeks 24349775 Z3A.21 [id number] Zohaib Barros MD [facility] [address],[place] [address] 1 06/14/2023 14:06:44 06/14/2023 14:41:39 History of bariatric surgical procedure 775877265 Z98.84 Z86.16 Z3A.25 [id number] DIANA ANGELA MD [facility] [address],[place] [address] 06/14/2023 14:07:06 06/14/2023 14:59:10 Nausea and vomiting 29612082 R11.2 History of bariatric surgical procedure 288450050 Z98.84 Gestation period, 25 weeks 03921047 Z3A.25 [id number] Zohaib Barros MD [facility] [address],[place] [address] 1 07/12/2023 12:00:44 07/12/2023 13:36:12 Previous bariatric surgery complicating 2810278369 79823 O99.843 Z86.16 Z3A.29 [id number] DIANA ANGELA MD [facility] [address],[place] [address] 1 07/12/2023 12:01:10 07/12/2023 12:59:42 History of bariatric surgical procedure 724134756 Z98.84 Gestation period, 29 weeks 81682507 Z3A.29 Uterine sc ar from previous surgery affecting 19598667 O34.29 [id number] Zohaib Barros MD [facility] [address],[place] [address] 1 07/26/2023 14:29:29 07/26/2023 15:21:41 Routine care 769242567 Z34.91 [id number] Zohaib Barros MD [facility] [address],[place] [address] 1 08/09/2023 12:01:48 08/09/2023 13:47:17 History of bariatric surgical procedure 430476811 Z98.84 Z86.16 Z3A.33 [id number] DIANA ANGELA MD [facility] [address],[place] [address] 1 08/09/2023 12:02:09 08/09/2023 14:34:34 Uterine scar from previous surgery affecting 02989533 O34.29 Anemia 204662089 D64.9 History of bariatric surgical procedure 826732419 Z98.84 History of SARS-CoV-2 29 96791320 60225708 Z86.16 Gestation period, 33 weeks 76600809 Z3A.33 [id number] DIANA ANGELA MD [facility] [address],[place] [address] 08/23/2023 12:04:24 08/24/2023 11:31:04 Anemia 510894828 D64.9 History of bariatric surgical procedure 268714127 Z98.84 Past pregn nancy history of section 380685163 Z98.890 SARS-CoV-2 196125602 U07 .1 Gestation period, 35 weeks 42901433 Z3A.35 [id number] Zohaib Barros MD [facility] [address],[place] [address] 09/06/2023 11:12:24 09/06/2023 13:55:55 History of bariatric surgical procedure 461077302 Z98.84 Z86.16 Z3A.37 [id number] DIANA ANGELA MD [facility] [address],[place] [address] 09/06/2023 11:13:41 09/06/2023 12:28:41 Anemia of 05937750 O99.019 History of bariatric surgical procedure 654778545 Z98.84 Past pregn nancy history of section 472261149 Z98.890 SARS-CoV-2 810490685 U07 .1 Gestation period, 37 weeks 57579674 Z3A.37 [id number] Zohaib Barros MD [facility] [address],[place] [address] 09/14/2023 12:21:48 09/14/2023 14:14:41 Routine care 511336563 Z34.91 [id number] Zohaib Barros MD [facility] [address],[place] [address] 1 09/25/2023 13:58:55 09/25/2023 14:33:09 Postoperative visit 563812008 Z48.89 This patient is a 28-year-ol d female who presents for postop follow-up. She is 1 week postop from a delivery. Her incision is clean dry and intact. She has no complaints . Her bleeding is minimal. She denies any nausea, vomiting, fever, chills. She denies any chest pain or shortness of breath. Her baby is doing well. Her mood is good. [id number] Zohaib Barros MD [facility] [address] [address] 10/16/2023 14:21:58 10/16/2023 15:10:11 care 811966693 Z39.2 This patient is a 49-year-ol d female presents for weight management . She got down to 148 lb. She is back up to 190's. Overall she is still down considerab le weight. She knows how to eat properly but has not been eating excessivel y.. She has been exercising though. She has the tools to lose the weight now. She feels confident. she was prescribed at [facility]. She was unable to get the 1st dose. Now she is able to get it. She will proceed with the 1st dose this month and consider going up on the dose after 1 month. I spent more than 25 minutes On her care total.. Health Concerns Section Related Observation LastModified by Organization Detai ls LastModified Time None Recorded Concern Status LastModified by Organization Details LastModified Time None Recorded Advance Directives Directive N: Payers Insurance Date Sequence Insurance Name Policy Number Policy Rader Covered Member ID Rader Member ID Guarantor Name 10/13/2023 1 [place] [id number] Nikolai Hale [id number] Celia Hale 09/21/2020 1 [place] [id number] Nikolai Hale [id number] Celia Hale Notes Date Note Type Note Provider Name and Address Organization Details Recorded Time 09/06/2023 text/html Generic HPI TemplateReported by Patient DIANA ANGELA MD [address], [place], [address], [facility] 09/06/2023 12:28:19 09/14/2023 text/html Generic HPI TemplateReported by Patient Zohaib Barros MD [address], [place], [address], [facility] 09/14/2023 14:05:08 09/25/2023 text/html This patient is a 28-year-old female who presents for postop follow-up. She is 1 week postop from a delivery. Her incision is clean dry and intact. She has no complaints. Her bleeding is minimal. She denies any nausea, vomiting, fever, chills. She denies any chest pain or shortness of breath. Her baby is doing well. Her mood is good. Josy hurt, [facility] 10/03/2023 09:37:57 10/16/2023 text/html VisitReported by Patient 28-year-old female presents for follow-up. Her baby is doing well. The baby is bottle feeding. She is doing well. Her mood is excellent. She is a longer bleeding. She has not had intercourse. She and her plan to have vasectomy. He is going to contact Urology. She will return in 3 months for a well-woman exam. Zohaib Barros MD [address], [place], [address], [facility] 10/16/2023 15:07:53 OBGyn Episode Ob Episode Information Episode Created Date Number of Fetuses Patient Bloodtype Patient rh Status Prepregnancy Weight lbs Domestic Partner Domestic Partner Phone Father Name Scout Sniper Status 10/27/19 21 1 O Positive 208 CLOSED Fetus Data First Name Last Name Admitted to NICU Weight (g) Sex Living Outcome Pediatric Complications Fetus ID Race Codes Race Delivery Type 3033.39 65 M true Full Term [id number] Primary Problems Problem Notes 02/22- Couldn't keep down 3 hr GTT, so will start checking BS QID with following normal diet to see if she rules in for GDM or not - does not rule in - pt is spot checking sugars, all WNL during . Problem Name Start Date End Date Resolution Snomed Code Not e History of gallstones 69982164 9 Obesity 643332445 BMI 44.6 - testing 34 wks weekly - sheet given to SB for ashwin to schedule 03/01 Mo Calculation Initial Mo Date Initial Exam Date Initial Exam Provider Initial Ultrasound Date Last Menstrual Period Date Ultra Sound Weeks Gestation 05/06/2021 10/26/2020 09/23/2020 07/30/2020 8 Eighteen To Twenty Week Mo Update Ultra Sound Date Fundal Height At Umbil Quickening Date Ultra Sound Latest Weeks Gestation Final Mo Confirmed By Final Mo Confirmed Date Final Mo Date Ultra Sound Latest Days Gestation 0 [email or web address] 10/26/2020 05/06/19 22 0 Pre-kt Flowsheet Flowsheet Date 10/26/2020 Grant Score Blood Edema Fundus Height Fundus Units Glucose Ketones Leukocytes Nitrite Labor Signs Protein Cervic Dilation Cervic Effacement Cervic Station Type Weight in lbs Pre/Post Dialysis Refused Weight 207.484650504200 BP Diastolic BP Location Tested BP Systolic BP Type 85 R arm 135 sitting Fetus Heart Rate Present Fetus Movement Comments This patient is a 25-year-ol d 1 at 12 weeks gestation who presents for initial care. She has no outstanding risk factors for this . She has no remarkable medical, obstetric, surgical history. She does have some gallstones. She has not had any pain with these stones for some time. She will begin routine care. We discussed care in great detail. Flowsheet Date 11/23/2020 Grant Score Blood Edema Fundus Height Fundus Units Glucose Ketones Leukocytes Nitrite Labor Signs Protein Cervic Dilation Cervic Effacement Cervic Station 16 trace Type Weight in lbs Pre/Post Dialysis Refused Weight 210.652621656562 BP Diastolic BP Location Tested BP Systolic BP Type 82 L arm 132 sitting Fetus Heart Rate Present A 144 Fetus Movement Comments Patient is back pain, she is interested in seeing customer care team coach. She was given recommendations , discussed alpha protein. Flowsheet Date 12/21/2020 Grant Score Blood Edema Fundus Height Fundus Units Glucose Ketones Leukocytes Nitrite Labor Signs Protein Cervic Dilation Cervic Effacement Cervic Station Type Weight in lbs Pre/Post Dialysis Refused BP Diastolic BP Location Tested BP Systolic BP Type Fetus Heart Rate Present Fetus Movement Comments Flowsheet Date 12/21/2020 Grant Score Blood Edema Fundus Height Fundus Units Glucose Ketones Leukocytes Nitrite Labor Signs Protein Cervic Dilation Cervic Effacement Cervic Station none trace Type Weight in lbs Pre/Post Dialysis Refused Weight 211.916432634796 BP Diastolic BP Location Tested BP Systolic BP Type 82 132 Fetus Heart Rate Present Fetus Movement A Yes Comments Having a boy. Doing well. Harshil king anatomy today. Will schedule routine visit and follow up u/s in 4 weeks. Flowsheet Date 12/23/2020 Grant Score Blood Edema Fundus Height Fundus Units Glucose Ketones Leukocytes Nitrite Labor Signs Protein Cervic Dilation Cervic Effacement Cervic Station 20 Type Weight in lbs Pre/Post Dialysis Refused Weight 214.784910220536 BP Diastolic BP Location Tested BP Systolic BP Type 80 R arm 124 sitting Fetus Heart Rate Present A 145 Fetus Movement Comments this patient presents for so me unusual vaginal discharge. She passed a fleshy piece of tissue originally thought to be cervical mucus but had a firmer consistency. Speculum exam was performed today that appeared normal. The cervix was closed. Digital exam was performed. I have concern of some cervical thinning and an at risk cervix. It feel to be approximately 30% effaced 40% effaced. To obtain a stat cervical length. To return in 1 week. Recent normal cervical length. Flowsheet Date 12/29/2020 Grant Score Blood Edema Fundus Height Fundus Units Glucose Ketones Leukocytes Nitrite Labor Signs Protein Cervic Dilation Cervic Effacement Cervic Station 23 Type Weight in lbs Pre/Post Dialysis Refused Weight 214.900234719915 BP Diastolic BP Location Tested BP Systolic BP Type 81 R arm 118 sitting Fetus Heart Rate Present A 154 Fetus Movement A Yes Comments Pelvic pressure is resolved, patient was brought in last week for increasing pressure and passing a flesh-colored rubbery substance. Evaluation was normal. She was examined, cervical length was checked and was normal. She states that her symptoms have resolved. Flowsheet Date 01/21/2021 Grant Score Blood Edema Fundus Height Fundus Units Glucose Ketones Leukocytes Nitrite Labor Signs Protein Cervic Dilation Cervic Effacement Cervic Station Type Weight in lbs Pre/Post Dialysis Refused BP Diastolic BP Location Tested BP Systolic BP Type Fetus Heart Rate Present Fetus Movement Comments Flowsheet Date 01/21/2021 Grant Score Blood Edema Fundus Height Fundus Units Glucose Ketones Leukocytes Nitrite Labor Signs Protein Cervic Dilation Cervic Effacement Cervic Station 25 Type Weight in lbs Pre/Post Dialysis Refused Weight 220.239713675560 BP Diastolic BP Location Tested BP Systolic BP Type 83 R arm 127 sitting Fetus Heart Rate Present A 156 Fetus Movement Comments anatomy scan was completed t jay for anatomy completion, ductus arteriosus was not visualized, To repeat in 4 weeks. Patient has no complaints. Flowsheet Date 02/15/2021 Grant Score Blood Edema Fundus Height Fundus Units Glucose Ketones Leukocytes Nitrite Labor Signs Protein Cervic Dilation Cervic Effacement Cervic Station Type Weight in lbs Pre/Post Dialysis Refused BP Diastolic BP Location Tested BP Systolic BP Type Fetus Heart Rate Present Fetus Movement Comments Flowsheet Date 02/15/2021 Grant Score Blood Edema Fundus Height Fundus Units Glucose Ketones Leukocytes Nitrite Labor Signs Protein Cervic Dilation Cervic Effacement Cervic Station 28 Type Weight in lbs Pre/Post Dialysis Refused Weight 223.024779381340 BP Diastolic BP Location Tested BP Systolic BP Type 80 L arm 119 sitting Fetus Heart Rate Present A 145 Fetus Movement A Yes Comments no complaints, normal anatomy baseline study was completed, normal cervical length, no complaints, discussed monitoring for obesity and serial growth ultrasound. Flowsheet Date 03/01/2021 Grant Score Blood Edema Fundus Height Fundus Units Glucose Ketones Leukocytes Nitrite Labor Signs Protein Cervic Dilation Cervic Effacement Cervic Station 33 Type Weight in lbs Pre/Post Dialysis Refused Weight 226.056323703138 BP Diastolic BP Location Tested BP Systolic BP Type 83 L arm 119 sitting Fetus Heart Rate Present A 145 Fetus Movement A Yes Comments reviewed blood sugars. She d oes not appear to be diabetic. We did review done obesity and testing. We agreed to start serial growth ultrasound. Size bigger than days today Flowsheet Date 03/15/2021 Grant Score Blood Edema Fundus Height Fundus Units Glucose Ketones Leukocytes Nitrite Labor Signs Protein Cervic Dilation Cervic Effacement Cervic Station 32 Type Weight in lbs Pre/Post Dialysis Refused Weight 232.98131452368 BP Diastolic BP Location Tested BP Systolic BP Type 81 R arm 126 sitting Fetus Heart Rate Present A 145 Fetus Movement A Yes Comments twice weekly NSTs starting i n 2 weeks, growth ultrasound 2 weeks, blood sugars well controlled. Flowsheet Date 03/30/2021 Grant Score Blood Edema Fundus Height Fundus Units Glucose Ketones Leukocytes Nitrite Labor Signs Protein Cervic Dilation Cervic Effacement Cervic Station none Type Weight in lbs Pre/Post Dialysis Refused Weight 227.686019261550 BP Diastolic BP Location Tested BP Systolic BP Type 87 137 Fetus Heart Rate Present Fetus Movement A Yes Comments Doing well. No contractions. Pre admit scheduled. Encouraged vaccines. NST and u/s today. Flowsheet Date 03/30/2021 Grant Score Blood Edema Fundus Height Fundus Units Glucose Ketones Leukocytes Nitrite Labor Signs Protein Cervic Dilation Cervic Effacement Cervic Station Type Weight in lbs Pre/Post Dialysis Refused BP Diastolic BP Location Tested BP Systolic BP Type Fetus Heart Rate Present Fetus Movement Comments Flowsheet Date 03/30/2021 Grant Score Blood Edema Fundus Height Fundus Units Glucose Ketones Leukocytes Nitrite Labor Signs Protein Cervic Dilation Cervic Effacement Cervic Station Type Weight in lbs Pre/Post Dialysis Refused BP Diastolic BP Location Tested BP Systolic BP Type Fetus Heart Rate Present Fetus Movement Comments Flowsheet Date 04/06/2021 Grant Score Blood Edema Fundus Height Fundus Units Glucose Ketones Leukocytes Nitrite Labor Signs Protein Cervic Dilation Cervic Effacement Cervic Station Type Weight in lbs Pre/Post Dialysis Refused BP Diastolic BP Location Tested BP Systolic BP Type Fetus Heart Rate Present Fetus Movement Comments Flowsheet Date 04/06/2021 Grant Score Blood Edema Fundus Height Fundus Units Glucose Ketones Leukocytes Nitrite Labor Signs Protein Cervic Dilation Cervic Effacement Cervic Station Type Weight in lbs Pre/Post Dialysis Refused BP Diastolic BP Location Tested BP Systolic BP Type Fetus Heart Rate Present Fetus Movement Comments Flowsheet Date 04/06/2021 Grant Score Blood Edema Fundus Height Fundus Units Glucose Ketones Leukocytes Nitrite Labor Signs Protein Cervic Dilation Cervic Effacement Cervic Station none 36 none trace 0cm Type Weight in lbs Pre/Post Dialysis Refused Weight 228.712004723008 BP Diastolic BP Location Tested BP Systolic BP Type 84 137 Fetus Heart Rate Present A 141 Fetus Movement A Yes Comments Pt was instructed by Dr Barros to only spot check fasting and 1 hour after a large meal. She states she has never had a fasting above 90 and the highest 1 hour was 130. Doing well. GBS collected today. Flowsheet Date 04/13/2021 Grant Score Blood Edema Fundus Height Fundus Units Glucose Ketones Leukocytes Nitrite Labor Signs Protein Cervic Dilation Cervic Effacement Cervic Station Type Weight in lbs Pre/Post Dialysis Refused Weight 229.532024810506 BP Diastolic BP Location Tested BP Systolic BP Type 81 139 Fetus Heart Rate Present Fetus Movement Comments Flowsheet Date 04/13/2021 Grant Score Blood Edema Fundus Height Fundus Units Glucose Ketones Leukocytes Nitrite Labor Signs Protein Cervic Dilation Cervic Effacement Cervic Station Type Weight in lbs Pre/Post Dialysis Refused BP Diastolic BP Location Tested BP Systolic BP Type Fetus Heart Rate Present Fetus Movement Comments Flowsheet Date 04/13/2021 Grant Score Blood Edema Fundus Height Fundus Units Glucose Ketones Leukocytes Nitrite Labor Signs Protein Cervic Dilation Cervic Effacement Cervic Station 36 Type Weight in lbs Pre/Post Dialysis Refused Weight 229.138723801487 BP Diastolic BP Location Tested BP Systolic BP Type 81 R arm 139 sitting 93 L arm 129 sitting Fetus Heart Rate Present A 137 Fetus Movement Comments No complaints, normal BPP an d normal SALAS today Flowsheet Date 04/20/2021 Grant Score Blood Edema Fundus Height Fundus Units Glucose Ketones Leukocytes Nitrite Labor Signs Protein Cervic Dilation Cervic Effacement Cervic Station Type Weight in lbs Pre/Post Dialysis Refused BP Diastolic BP Location Tested BP Systolic BP Type Fetus Heart Rate Present Fetus Movement Comments Flowsheet Date 04/20/2021 Grant Score Blood Edema Fundus Height Fundus Units Glucose Ketones Leukocytes Nitrite Labor Signs Protein Cervic Dilation Cervic Effacement Cervic Station Type Weight in lbs Pre/Post Dialysis Refused BP Diastolic BP Location Tested BP Systolic BP Type Fetus Heart Rate Present Fetus Movement Comments Flowsheet Date 04/20/2021 Grant Score Blood Edema Fundus Height Fundus Units Glucose Ketones Leukocytes Nitrite Labor Signs Protein Cervic Dilation Cervic Effacement Cervic Station none 37 trace neg Type Weight in lbs Pre/Post Dialysis Refused Weight 229.344136789667 BP Diastolic BP Location Tested BP Systolic BP Type 86 133 Fetus Heart Rate Present Fetus Movement A Yes Comments Spot checking blood sugars a nd highest fasting has been 93 and highest 1 hour is 130. Pre admit done. Occasional contractions. Cervix closed/40%/mid position. Labor precautions. Flowsheet Date 04/27/2021 Grant Score Blood Edema Fundus Height Fundus Units Glucose Ketones Leukocytes Nitrite Labor Signs Protein Cervic Dilation Cervic Effacement Cervic Station Type Weight in lbs Pre/Post Dialysis Refused BP Diastolic BP Location Tested BP Systolic BP Type Fetus Heart Rate Present Fetus Movement Comments Flowsheet Date 04/27/2021 Grant Score Blood Edema Fundus Height Fundus Units Glucose Ketones Leukocytes Nitrite Labor Signs Protein Cervic Dilation Cervic Effacement Cervic Station Type Weight in lbs Pre/Post Dialysis Refused BP Diastolic BP Location Tested BP Systolic BP Type Fetus Heart Rate Present Fetus Movement Comments Flowsheet Date 04/27/2021 Grant Score Blood Edema Fundus Height Fundus Units Glucose Ketones Leukocytes Nitrite Labor Signs Protein Cervic Dilation Cervic Effacement Cervic Station neg none trace Type Weight in lbs Pre/Post Dialysis Refused Weight 224.349383709521 BP Diastolic BP Location Tested BP Systolic BP Type 87 129 Fetus Heart Rate Present Fetus Movement A Yes Comments She was instructed earlier i n just to spot check d/t not being able to hold down 3 hour. BS log does not indicate GDM. Doing well. Occasional contractions. BS remain normal. Declines vaginal exam. Labor precautions given. Flowsheet Date 05/04/2021 Grant Score Blood Edema Fundus Height Fundus Units Glucose Ketones Leukocytes Nitrite Labor Signs Protein Cervic Dilation Cervic Effacement Cervic Station Type Weight in lbs Pre/Post Dialysis Refused Weight 226.824921956611 BP Diastolic BP Location Tested BP Systolic BP Type 86 135 Fetus Heart Rate Present Fetus Movement Comments Flowsheet Date 05/04/2021 Grant Score Blood Edema Fundus Height Fundus Units Glucose Ketones Leukocytes Nitrite Labor Signs Protein Cervic Dilation Cervic Effacement Cervic Station Type Weight in lbs Pre/Post Dialysis Refused BP Diastolic BP Location Tested BP Systolic BP Type Fetus Heart Rate Present Fetus Movement Comments Flowsheet Date 05/04/2021 Grant Score Blood Edema Fundus Height Fundus Units Glucose Ketones Leukocytes Nitrite Labor Signs Protein Cervic Dilation Cervic Effacement Cervic Station none 40 none trace Type Weight in lbs Pre/Post Dialysis Refused Weight 226.141200564875 BP Diastolic BP Location Tested BP Systolic BP Type 86 135 Fetus Heart Rate Present A 143 Fetus Movement A Yes Comments Doing well. Occasional contr actions. Cervix ft/50/-3. Plan cervidil induction Monday. Pt has asked me to cover her delivery if possible. Labor precautions given. Flowsheet Date 05/18/2021 Grant Score Blood Edema Fundus Height Fundus Units Glucose Ketones Leukocytes Nitrite Labor Signs Protein Cervic Dilation Cervic Effacement Cervic Station Type Weight in lbs Pre/Post Dialysis Refused Weight 212.10921028164 BP Diastolic BP Location Tested BP Systolic BP Type 91 136 Fetus Heart Rate Present Fetus Movement Comments Flowsheet Date 05/25/2021 Grant Score Blood Edema Fundus Height Fundus Units Glucose Ketones Leukocytes Nitrite Labor Signs Protein Cervic Dilation Cervic Effacement Cervic Station Type Weight in lbs Pre/Post Dialysis Refused Weight 203.47764237473 BP Diastolic BP Location Tested BP Systolic BP Type 82 121 Fetus Heart Rate Present Fetus Movement Comments Menstrual History Last Menstrual Date Menses Monthly On Bcp Conception Prior Menses Frequency Hcg Plus Date Menarche Onset Age 0407/30/2020 Genetic Screening And Infection History Question Response Note Mental Retardation/Autism false Patient's Age Will Be 35 Years Or Older At Estim ated Date of Delivery false Thalassemia (Turkish, Puerto Rican, Mediterranean, Or Background): MCV < 80 false Neural Tube Defect (Meningomyelocele, Spina Bifi da, Or Anencephaly) false Congenital Heart Defect false Down Syndrome false Cedric-Sachs (eg, Caodaism, Cajun, [place] Islander-Guamanian) f alse Saturnino Disease false Sickle Cell Disease Or Trait () false Hemophilia Or Other Blood Disorders false Muscular Dystrophy false Cystic Fibrosis false [place]'s Chorea false Intellectual Disability/Autism false If Yes, Was Person Tested For Fragile X? false Other Inherited Genetic Or Chromosomal Disorder false Maternal Metabolic Disorder (eg, Type 1 Diabetes , PKU) false Patient Or Baby's Father Had A Child With Defects Not Listed Above false Recurrent Loss, Or A Stillbirth false Medications (including Suppl ements, Vitamins, Herbs, OTC Drugs), Illicit/Recreational Drugs, Alcohol false If Yes, Agent(s) And Strength/Dosage false Any Other Genetic History false Live With Someone With TB Or Exposed To TB false Patient Or Partner Has History Of Genital Herpes false Rash Or Viral Illness Since Last Menstrual Perio d false History Of STD, Gonorrhea, Chlamydia, HPV, Syphi lis false Other Infection History false History of HIV false History of Hepatitis false Prior GBS-infected child false Hemoglobinopathy Or Carrier false Other Structural Defect false Recent Travel History Outside of Country false Delivery Information Delivery Date Delivery Type Labor Anesthesia Weeks Gestation Incision Type Labor Labor Length Hrs Delivered By Post Complications Tubal Sterilization Discharge Date Comments 2 Induce d [facility] 40.4 Low Transvers e false Zohaib Barros MD non reassurin g heart tones & maternal obesity Discharge Information Feeding Method Contraceptive Method Maternal HG B and HCT Levels Ob Episode Information Episode Created Date Number of Fetuses Patient Bloodtype Patient rh Status Prepregnancy Weight lbs Domestic Partner Domestic Partner Phone Father Name Scout Sniper Status 03/15/20 23 1 129 CLOSED Fetus Data First Name Last Name Admitted to NICU Weight (g) Sex Living Outcome Pediatric Complications Fetus ID Race Codes Race Delivery Type 3061.74 6 M true Full Term 29435 Repeat Problems Problem Notes Problem Name Start Date End Date Resolution Snomed Code Not e History of bariatric surgical procedure [id number] gastric s leeve 11/2021; labs q trimester (CBC, ferritin, Fe, Ca, VitD, Maryan); recommend fingersticks instead of GCT Past history of section [id number] desires RCS SARS-CoV-2 04/14/2023 [id number] Serial g rowth & ASA Anemia 07/17/2023 [id number] IV iron o rder sent dose reaction to venofer 08/06 SLo fe BID & recheck labs 2wks Mo Calculation Initial Mo Date Initial Exam Date Initial Exam Provider Initial Ultrasound Date Last Menstrual Period Date Ultra Sound Weeks Gestation 09/22/2022 03/15/2023 01/30/2023 12/17/2022 6 Eighteen To Twenty Week Mo Update Ultra Sound Date Fundal Height At Umbil Quickening Date Ultra Sound Latest Weeks Gestation Final Mo Confirmed By Final Mo Confirmed Date Final Mo Date Ultra Sound Latest Days Gestation 0 [id number] 03/15/2023 09/23/19 24 0 Pre- Flowsheet Flowsheet Date 03/15/2023 Grant Score Blood Edema Fundus Height Fundus Units Glucose Ketones Leukocytes Nitrite Labor Signs Protein Cervic Dilation Cervic Effacement Cervic Station Type Weight in lbs Pre/Post Dialysis Refused BP Diastolic BP Location Tested BP Systolic BP Type Fetus Heart Rate Present Fetus Movement Comments Flowsheet Date 03/15/2023 Grant Score Blood Edema Fundus Height Fundus Units Glucose Ketones Leukocytes Nitrite Labor Signs Protein Cervic Dilation Cervic Effacement Cervic Station 12 Type Weight in lbs Pre/Post Dialysis Refused Weight 131.320853080849 BP Diastolic BP Location Tested BP Systolic BP Type 71 112 Fetus Heart Rate Present A 155 Fetus Movement Comments Presents to establish prenat al care. Doing well, no bleeding or cramping. Nausea improving. Had gastric sleeve surgery in 11/2021. Will order vitamin levels today. Plan for fingerstick for GCT. NIPT today. NT/NB wnl. Prior complicated by primary c section for NRFHT. Will begin care. Flowsheet Date 04/19/2023 Grant Score Blood Edema Fundus Height Fundus Units Glucose Ketones Leukocytes Nitrite Labor Signs Protein Cervic Dilation Cervic Effacement Cervic Station 16 Type Weight in lbs Pre/Post Dialysis Refused Weight 129.936539817607 BP Diastolic BP Location Tested BP Systolic BP Type 84 131 Fetus Heart Rate Present A 155 Fetus Movement A Yes Comments COVID symptoms , con gestion, runny nose. +Monday. Feeling better now. Discussed serial growth US and bASA. Good movement. No cramping or bleeding. Would like RCS with Dr. Barros. New OB labs wnl, slight vitamin A deficiency, encouraged vitamins. Anatomy next visit. Flowsheet Date 05/17/2023 Grant Score Blood Edema Fundus Height Fundus Units Glucose Ketones Leukocytes Nitrite Labor Signs Protein Cervic Dilation Cervic Effacement Cervic Station Type Weight in lbs Pre/Post Dialysis Refused BP Diastolic BP Location Tested BP Systolic BP Type Fetus Heart Rate Present Fetus Movement Comments Flowsheet Date 05/17/2023 Grant Score Blood Edema Fundus Height Fundus Units Glucose Ketones Leukocytes Nitrite Labor Signs Protein Cervic Dilation Cervic Effacement Cervic Station Type Weight in lbs Pre/Post Dialysis Refused Weight 136.318771851365 BP Diastolic BP Location Tested BP Systolic BP Type 64 102 Fetus Heart Rate Present A 150 Fetus Movement A Yes Comments Doing well, good movem ent. No cramping or bleeding. EFW 30%, variable position, anatomy complete and normal. Continue serial growth US for hx of covid in . Will repeat bariatric surgery labs to monitor for malabsorption. Plan for finger stink glucose check in lieu of glucola due to hx of bariatric surgery. Flowsheet Date 06/14/2023 Grant Score Blood Edema Fundus Height Fundus Units Glucose Ketones Leukocytes Nitrite Labor Signs Protein Cervic Dilation Cervic Effacement Cervic Station Type Weight in lbs Pre/Post Dialysis Refused BP Diastolic BP Location Tested BP Systolic BP Type Fetus Heart Rate Present Fetus Movement Comments Flowsheet Date 06/14/2023 Grant Score Blood Edema Fundus Height Fundus Units Glucose Ketones Leukocytes Nitrite Labor Signs Protein Cervic Dilation Cervic Effacement Cervic Station Type Weight in lbs Pre/Post Dialysis Refused Weight 137.858134732363 BP Diastolic BP Location Tested BP Systolic BP Type 67 105 Fetus Heart Rate Present A 136 Fetus Movement A Yes Comments Doing well, some increased p elvic pressure. NO ctx, LOF, VB. Baby active. EFW 21%, normal SALAS, breech. Lancets sent for fingerstick glucose monitoring, instructions given to patient to check F/pp x2 weeks and review at next appointment. Will check malabsorption labs as well at next visit. RTC 4 weeks. Flowsheet Date 07/12/2023 Grant Score Blood Edema Fundus Height Fundus Units Glucose Ketones Leukocytes Nitrite Labor Signs Protein Cervic Dilation Cervic Effacement Cervic Station Type Weight in lbs Pre/Post Dialysis Refused BP Diastolic BP Location Tested BP Systolic BP Type Fetus Heart Rate Present Fetus Movement Comments Flowsheet Date 07/12/2023 Grant Score Blood Edema Fundus Height Fundus Units Glucose Ketones Leukocytes Nitrite Labor Signs Protein Cervic Dilation Cervic Effacement Cervic Station Type Weight in lbs Pre/Post Dialysis Refused Weight 139.942778486102 BP Diastolic BP Location Tested BP Systolic BP Type 70 107 Fetus Heart Rate Present A 134 Fetus Movement A Yes Comments Good movement. No cram ping or bleeding. EFW 20%, SALAS wnl. Variable position. Has checked glucose levels x2 weeks and all wnl. No evidence of gestational HTN. Abimael recheck malabsorption labs this week. RTC 2 weeks, plan for repeat growht US in 4 weeks. Flowsheet Date 07/26/2023 Grant Score Blood Edema Fundus Height Fundus Units Glucose Ketones Leukocytes Nitrite Labor Signs Protein Cervic Dilation Cervic Effacement Cervic Station neg trace none trace Type Weight in lbs Pre/Post Dialysis Refused Weight 140.992343564887 BP Diastolic BP Location Tested BP Systolic BP Type 73 L arm 110 sitting Fetus Heart Rate Present Fetus Movement A Yes Comments lower extremity swelling, go od movement, iron infusions tomorrow Flowsheet Date 08/09/2023 Grant Score Blood Edema Fundus Height Fundus Units Glucose Ketones Leukocytes Nitrite Labor Signs Protein Cervic Dilation Cervic Effacement Cervic Station Type Weight in lbs Pre/Post Dialysis Refused BP Diastolic BP Location Tested BP Systolic BP Type Fetus Heart Rate Present Fetus Movement Comments Flowsheet Date 08/09/2023 Grant Score Blood Edema Fundus Height Fundus Units Glucose Ketones Leukocytes Nitrite Labor Signs Protein Cervic Dilation Cervic Effacement Cervic Station Type Weight in lbs Pre/Post Dialysis Refused Weight 140.300342887363 BP Diastolic BP Location Tested BP Systolic BP Type 73 119 Fetus Heart Rate Present A 135 Fetus Movement A Yes Comments Good movement. No ctx, LOF, VB. Having some b/l LE swelling. Had extreme hypotension during Fe infusion; will hold on further infusions. Doing BID PO Fe. Discussed sertraline increase closer to delivery due to worsening PPD after last . EFW 20%, vertex, normal SALAS. Continue serial growth US. RTC 2 weeks. Flowsheet Date 08/23/2023 Grant Score Blood Edema Fundus Height Fundus Units Glucose Ketones Leukocytes Nitrite Labor Signs Protein Cervic Dilation Cervic Effacement Cervic Station Type Weight in lbs Pre/Post Dialysis Refused Weight 142.520225667618 BP Diastolic BP Location Tested BP Systolic BP Type 77 116 Fetus Heart Rate Present A 145 Fetus Movement A Yes Comments Doing well, baby active. No cramping or bleeding. Mood stable. LE edema stable. Tolerating BID Fe supplementation. Repeat growth US next visit. RTC 2 weeks. Flowsheet Date 09/06/2023 Grant Score Blood Edema Fundus Height Fundus Units Glucose Ketones Leukocytes Nitrite Labor Signs Protein Cervic Dilation Cervic Effacement Cervic Station Type Weight in lbs Pre/Post Dialysis Refused BP Diastolic BP Location Tested BP Systolic BP Type Fetus Heart Rate Present Fetus Movement Comments Flowsheet Date 09/06/2023 Grant Score Blood Edema Fundus Height Fundus Units Glucose Ketones Leukocytes Nitrite Labor Signs Protein Cervic Dilation Cervic Effacement Cervic Station Type Weight in lbs Pre/Post Dialysis Refused Weight 145.939001425513 BP Diastolic BP Location Tested BP Systolic BP Type 76 120 Fetus Heart Rate Present A 136 Fetus Movement A Yes Comments Doing well, good movem ent. No ctx, LOF, VB. Will schedule c section for 09/[address] Barros. Concerned about increasing anxiety/depression. Will increase sertraline to 100mg. EFW 24%, vertex, normal SALAS. Will recheck CBC/Fe panel today. RTC 1 week. Flowsheet Date 09/14/2023 Grant Score Blood Edema Fundus Height Fundus Units Glucose Ketones Leukocytes Nitrite Labor Signs Protein Cervic Dilation Cervic Effacement Cervic Station neg trace 39 none neg Type Weight in lbs Pre/Post Dialysis Refused Weight 142.380815584154 BP Diastolic BP Location Tested BP Systolic BP Type 82 L arm 115 sitting Fetus Heart Rate Present A 145 Fetus Movement A Yes Comments Patient c/o of slight swelli ng in legs, along with some nausea and vomiting, to have on Monday. Blood pressures are normal. Menstrual History Last Menstrual Date Menses Monthly On Bcp Conception Prior Menses Frequency Hcg Plus Date Menarche Onset Age 0912/17/2022 Genetic Screening And Infection History Question Response Note Mental Retardation/Autism false Patient's Age Will Be 35 Years Or Older At Estim ated Date of Delivery false Thalassemia (Turkish, [place]ican, Mediterranean, Or Background): MCV < 80 false Neural Tube Defect (Meningomyelocele, Spina Bifi da, Or Anencephaly) false Congenital Heart Defect false Down Syndrome false Cedric-Sachs (eg, Caodaism, Cajun, [place] Islander-Guamanian) f alse Saturnino Disease false Sickle Cell Disease Or Trait () false Hemophilia Or Other Blood Disorders false Muscular Dystrophy false Cystic Fibrosis false [place]'s Chorea false Intellectual Disability/Autism false If Yes, Was Person Tested For Fragile X? false Other Inherited Genetic Or Chromosomal Disorder false Maternal Metabolic Disorder (eg, Type 1 Diabetes , PKU) false Patient Or Baby's Father Had A Child With Defects Not Listed Above false Recurrent Loss, Or A Stillbirth false Medications (including Suppl ements, Vitamins, Herbs, OTC Drugs), Illicit/Recreational Drugs, Alcohol false If Yes, Agent(s) And Strength/Dosage false Any Other Genetic History false Live With Someone With TB Or Exposed To TB false Patient Or Partner Has History Of Genital Herpes false Rash Or Viral Illness Since Last Menstrual Perio d false History Of STD, Gonorrhea, Chlamydia, HPV, Syphi lis false Other Infection History false History of HIV false History of Hepatitis false Prior GBS-infected child false Hemoglobinopathy Or Carrier false Other Structural Defect false Recent Travel History Outside of Country false Delivery Information Delivery Date Delivery Type Labor Anesthesia Weeks Gestation Incision Type Labor Labor Length Hrs Delivered By Post Complications Tubal Sterilization Discharge Date Comments 4 None [facility] 39.2 false Beer, Zohaib MD Anemia,Hi story of bariatric surgical procedure ,History of section,S ARS-CoV-2 Discharge Information Feeding Method Contraceptive Method Maternal HG B and HCT Levels
[2025-03-29 15:49] VITALS: BP 121/74; PULSE 108; RESP 16; TEMP 36.6; O2SAT 100
--- NOTE | 2025-03-29 16:10 | ED.FEMALEGU ---
HPI - Female Genitourinary General Chief complaint: Urogenital-Female Stated complaint: Urinary Problem Time Seen by Provider: 03/29/25 16:05 Source: patient, RN notes reviewed and old records reviewed Mode of arrival: ambulatory Limitations: no limitations History of Present Illness HPI Narrative: 30 year old female who presents to express care a complaints of 1 week duration of frequency, urgency, and pain at the end of her stream. with some suprapubic pressure for the past week. Patient has taken some Azo for her symptoms and also has increased her water intake. Patient reports no vaginal discharge or itching. denies any fevers, chills or sweats or any back pain, denies any nausea vomiting or diarrhea. MD elicited complaint: UTI Onset (ago): week(s) (1) Location of symptoms: suprapubic and urethra Severity: mild Severity scale (1-10): 3 Quality of pain: aching Vaginal discharge: none Vaginal bleeding: none Treatment prior to arrival: OTC urinary analgesics Related Data Home Medications ?Medication ?Instructions ?Recorded ?Confirmed ?Last Taken ?Type famotidine 10 mg tablet 10 mg PO BID 08/03/23 09/18/23 09/17/23 17:00 History sertraline 50 mg tablet 100 mg PO DAILY 08/03/23 09/18/23 09/18/23 07:00 History vitamin A 10,000 unit tablet 10,000 unit PO DAILY 08/03/23 09/18/23 09/14/23 07:00 History bupropion HCl 150 mg 24 hr tablet, mg PO 03/29/25 Unknown History extended release dextroamphetamine-amphetamine 15 03/29/25 Unknown History mg tablet Allergies Allergy/AdvReac Type Severity Reaction Status Date / Time adhesive tape Allergy Redness of Verified 03/29/25 16:10 Skin iron (From Venofer) Allergy Anaphylaxis Verified 03/29/25 16:10 Review of Systems Review of Systems: CONSTITUTIONAL: Denies fever, chills, or sweats. CARDIOVASCULAR: Denies chest pain, palpitations, or edema. RESPIRATORY: Denies cough or dyspnea. GASTROINTESTINAL: reports suprapubic discomfort , no nausea, vomiting, or diarrhea. GENITOURINARY: Reports dysuria, frequency, urgency. Denies flank pain or hematuria. SKIN: Denies rash or itching. MUSCULOSKELETAL: Denies back pain or myalgia. Denies CVA tenderness NEUROLOGIC: Denies headache All systems reviewed & are unremarkable except as noted in HPI and below PMFSH Past Medical History Medical History (Updated 03/31/25 @ 12:57 by Marleen Estevez APRN) Urinary tract infection Asthma Depression ADHD Morbid obesity Surgical History Surgical History Previous delivery, delivered History of cholecystectomy Family History Family History Mother Hypertension Social History Social History (Updated 03/31/25 @ 12:49 by Marleen Estevez APRN) Smoking packs per day: 0.5 Smoking cigarettes per day: 10.0 Years smoked: 5 Smoking pack-years: 2.50 Smoking status: Current every day smoker Tobacco type: cigarettes and e-cigarettes/vaping Additional smoking assessment comments: presently vapes Alcohol intake: current Alcohol use details: social Substance use type: marijuana Lack of Transportation: No Lack of Food: Never True Current Housing: I Have Housing Concerned About Future Housing: No Difficulty Paying Gas/Electric Bills: No Difficulty Paying for Meds: No Currently Unemployed: No Education: High School Diploma/GED Difficulty w/ Childcare or Family Care: No Spiritual care concerns: No Comments At time of signature, agree with nursing past medical, surgical, social and family history. There is no relevant family history pertinent to the presenting complaint Exam Narrative: GENERAL: Well-appearing, well-nourished, and in no acute distress. HEAD: Normocephalic, atraumatic. NECK: Supple.no lymphadenopathy CHEST: Clear to auscultation. No respiratory distress.SAO2 100% on room air HEART: Regular rate and rhythm. No murmur heard. Normal peripheral pulses. ABDOMEN: Soft, tender suprapubic area, nondistended, normal active bowel sounds. No CVA tenderness, positive for frequency and urgency and pain at end of stream EXTREMITIES: Normal range of motion. No edema. SKIN: Warm, dry, no rash. NEURO: No focal deficits. Alert and oriented x3. Course Course Level of Care: Express Care Visit Vital Signs Vital signs: Vital Signs Temperature 36.6 C 03/29/25 15:49 Pulse Rate 108 H 03/29/25 15:49 Respiratory Rate 16 03/29/25 15:49 Blood Pressure 121/74 03/29/25 15:49 Pulse Oximetry 100 03/29/25 15:49 Oxygen Delivery Room Air 03/29/25 15:49 Temperature 36.6 C 03/29/25 15:49 Pulse Rate 108 H 03/29/25 15:49 Respiratory Rate 16 03/29/25 15:49 Blood Pressure 121/74 03/29/25 15:49 Pulse Oximetry 100 03/29/25 15:49 Oxygen Delivery Room Air 03/29/25 15:49 reviewed [facility] Narrative Medical decision making narrative: Patient will be treated for UTI with Macrobid and urine sent for culture for further analysis. Patient is nontoxic appearing and appropriate for outpatient care and follow up. Anticipatory guidance and reasons to seek care in the ED reviewed with patient with understanding voiced. Differential Diagnosis Differential Diagnosis: Differential diagnostic considerations for female urogenital? issues include urinary tract infection, bacterial vaginosis, cervicitis, ovarian cyst, vaginitis, STI exposure, ovarian torsion, ectopic , cyst of Bartholin?s gland, cystitis, dysmenorrhea.?? Lab Data [facility] Lab Attestation statement: I personally reviewed the patient's lab results. Lab results narrative: urine dip reviewed trace leukocytes and trace protein noted with specific gravity 1.030, + for UTI symptoms Labs: Lab Results 03/29/25 Range/Units 16:13 POC Urine Color Yellow POC Urine Clarity Clear POC Urine pH 5.5 POC Ur Specif [place] 1.030 POC Urine Protein Trace (Negative) POC Ur Glucose (UA) Negative (Negative) POC Urine Ketones Negative (Negative) POC Urine Blood Negative (Negative) POC Urine Nitrite Negative (Negative) POC Urine Bilirubin Negative (Negative) POC Urine Urobilinogen 0.2 POC U Leukocyte Esteras Trace (Negative) reviewed Critical Care Time Critical Care Time Critical Care Time: No Discharge Plan Discharge Clinical Impression: Urinary tract infection Qualifiers: Urinary tract infection type: site unspecified Hematuria presence: without hematuria Qualified Code(s): N39.0 - Urinary tract infection, site not specified Patient Disposition: Home Condition: Stable Instructions: Antibiotic Form, Urinary Tract Infection in Women (ED) Additional Instructions: Increase fluids especially cranberry juice and water Avoid caffeine and carbonated beverages Antibiotic as directed Tylenol/ibuprofen for pain or fever Follow-up with her primary care provider if further problems or concerns Recheck if you have fever over 101, nausea and vomiting. If your symptoms persist, change or worsen significantly before you can contact your personal physician then please, without delay, go to the emergency department for further evaluation. Follow-up with PCP in 7-10 days or sooner if needed Patient Language: Dutch Prescriptions: New nitrofurantoin monohyd/m-cryst [Macrobid] 100 mg capsule 100 mg PO Q12H 7 Days Qty: 14 0RF Rx Instructions: must administer with a meal/food No Action dextroamphetamine-amphetamine 15 mg tablet bupropion HCl 150 mg tablet extended release 24 hr PO famotidine 10 mg Tablet 10 mg PO BID sertraline 50 mg Tablet 100 mg PO DAILY vitamin A 10,000 unit Tablet 10,000 unit PO DAILY Follow-up/Referrals: Zohaib Barros MD [Primary Care Provider, [employer]] Time of Disposition: 16:35 Quality [place] Coma Scale Eyes: Open Verbal: Oriented and Alert Motor: Follows Commands [place] Coma Total Score: 15
[2025-03-29 16:15] LABS: EDUAAPPEAR Clear; EDUABILI Negative (Negative); EDUABLOOD Negative (Negative); EDUACOLOR1 Yellow; EDUAGLUCOSE Negative (Negative); EDUAKETONE Negative (Negative); EDUALEUKO Trace (Negative); EDUANITRATE Negative (Negative); EDUAPH 5.5; EDUAPROTEIN Trace (Negative); EDUASPGRAVITY 1.030; EDUAUROBILI 0.2
== END 2025-03-29 16:38 | disposition home or self-care (01) ==
PROVIDERS: Emergency Provider Registered Nurse; PCP Obstetrics & Gynecology
DX: N39.0 Urinary tract infection, site not specified (principal); F17.210 Nicotine dependence, cigarettes, uncomplicated; F17.290 Nicotine dependence, other tobacco product, uncomplicated; J45.909 Unspecified asthma, uncomplicated; E66.01 Morbid (severe) obesity due to excess calories; Z68.22 Body mass index [BMI] 22.0-22.9, adult; F90.9 Attention-deficit hyperactivity disorder, unspecified type; F32.A Depression, unspecified
CPT/HCPCS: 81003; 87077; 87086; 87186; 99213; G0463